=== PATIENT | female | born 1990 | race Caucasian/White ===

== ENCOUNTER 2023-12-18 14:08 | Outpatient (CLI) | payer SELFPAY ==
--- NOTE | ~2023-12-18 | US_ITS ---
US OB transvaginal Ordering provider: Magalys Honeycutt, ANDREA History: . Uncertain dates . Comparison: None. Technique: endovaginal ultrasound of the pelvis (Doppler ultrasound interrogation techniques used as needed for this exam.) FINDINGS: CERVIX: Normal. UTERUS: Measures 12.2x 5.6x 7.9 cm in length which is within normal limits and is anteverted. Intrauterine is noted with gestational age 7 weeks and 0 days. BEAR is August 05, 2024. Yolk sac is 0.4 cm. pole: 1 cm heart rate is 149 bpm. CUL DE SAC: No free fluid. RIGHT OVARY: Not visualized. LEFT OVARY: Normal in size measuring 2.8x 1.2x 2.1 cm. Normal echotexture. Doppler vascular flow pres ent. ADNEXA: Normal. No mass. IMPRESSION: Intrauterine with gestational age 7 weeks and BEAR on August 05, 2024. Otherwise, normal pelvi c ultrasound. Reviewed, dictated and finalized at location A. IMPRESSION: Intrauterine with gestational age 7 weeks and BEAR on August 05, 2024. O therwise, normal pelvic ultrasound.
== END 2023-12-18 14:09 | disposition home or self-care (01) ==
PROVIDERS: PCP Nurse Practitioner Women's Health; Visit Provider Nurse Practitioner Women's Health
DX: Z36.87 Encounter for antenatal screening for uncertain dates (principal); Z3A.01 Less than 8 weeks gestation of pregnancy
CPT/HCPCS: 76817

== ENCOUNTER 2024-02-02 10:43 | Outpatient (CLI) | payer SELFPAY ==
--- NOTE | ~2024-02-02 | US_ITS ---
Pelvic ultrasound. Clinical History: First trimester , spotting Technique: Realtime transabdominal and transvaginal scanning of the pelvis was performed. Color flow Doppler and Doppler spectral analysis were performed. Findings: The uterus is anteverted, and contains an intrauterine gestation. Placenta is located poste riorly. Cephalic lie present. Cervix closed, measuring 3.2 cm in length. Small subchronic hemorrhage present. heart rate is 139 bpm. [place]-rump length of 8.7 cm corresponds to an estimated gestati onal age of 14 weeks 4 days.. Neither ovary seen. No adnexal mass seen. There is no evidence of free fluid in the cul de sac. Impression: Live intrauterine gestation, with estimated gestational age of 14 weeks 4 days. heart rate is 1 39 bpm. Small subchronic hemorrhage. Reviewed, dictated and finalized at [facility]. ER ELECTRONIC Impression: Live intrauterine gestation, with estimated gestational age of 14 weeks 4 days. heart rate is 139 bpm. Small subchronic hemorrhage.
== END 2024-02-02 10:44 | disposition home or self-care (01) ==
LOC: MICIMG 10:44
PROVIDERS: PCP Obstetrics & Gynecology Gynecology; Visit Provider Obstetrics & Gynecology Gynecology
DX: O26.851 Spotting complicating pregnancy, first trimester (principal); Z3A.14 14 weeks gestation of pregnancy
CPT/HCPCS: 76801

== ENCOUNTER 2024-03-25 12:52 | Outpatient (CLI) | payer SELFPAY ==
--- NOTE | ~2024-03-25 | US_ITS ---
EXAMINATION: US OB /maternal detail DATE: 03/25/2024 13:38 INDICATION: anatomic survey. TECHNIQUE: Real-time ultrasound of the pelvis was performed. COMPARISON: Ultrasound 03/04/2024, 02/02/2024, 12/18/2023 FINDINGS: There is a single living fetus in transverse lie. The placenta is posterior, 4.0 cm from the cervix. The cervical length is 3.7 cm on transabdominal images, which is normal. heart rate is 136 maximus ts per minute (bpm). The amniotic fluid volume is subjectively normal. The following biometric data were obtained: Biparietal diameter (BPD): 4.9 cm; head circumference (HC): 19.1 cm; abdominal circumference (AC): 17 .0 cm; femur length (FL): 3.6 cm. These measurements are concordant. Estimated weight is 444 g +/- 67 g, which correlates with the 81st percentile when 08/05/24 is u sed as estimated date of delivery. As single measurements, these parameters are each equal to the following estimated gestational ages: BPD: 20 weeks 6 days. HC: 21 weeks 3 days. AC: 22 weeks 0 days. FL: 21 weeks 4 days. estimated gestational age based solely on measurements from this exam is 21 weeks 3 days +/- 1 weeks 4 days. The cerebral ventricles, cerebellum, cisterna magna, lip, and spine are normal. The heart is normal. The diaphragm, stomach, kidneys, and bladder are normal. There are two umbilical arteries to yield a 3-vessel cord. The cord insertion is normal. IMPRESSION: 1. Single living fetus in transverse lie. 2. Estimated weight is 444 g +/- 67 g, which correlates with the 81st percentile when 08/05/24 is used as estimated date of delivery. This date was set by ultrasound on 12/18/2023. 3. Normal anatomic survey. Reviewed, dictated and finalized at location A. ONS ADVISOR IMPRESSION: 1. Single living fetus in transverse lie. 2. Estimated weight is 444 g +/- 67 g, which correlates with the 81st pe rcentile when 08/05/24 is used as estimated date of delivery. This date was set by ultrasound on 12/18/2023. 3. Normal anatomic survey.
== END 2024-03-25 12:53 | disposition home or self-care (01) ==
PROVIDERS: PCP Obstetrics & Gynecology Gynecology; Visit Provider Nurse Practitioner Women's Health
DX: Z36.9 Encounter for antenatal screening, unspecified (principal)
CPT/HCPCS: 76805

== ENCOUNTER 2024-05-03 13:47 | Outpatient (CLI) | payer OTHER, SELFPAY ==
--- NOTE | ~2024-05-03 | US_ITS ---
EXAMINATION: US OB follow up DATE: 05/03/2024 14:09 INDICATION: Size greater than dates. TECHNIQUE: Real-time ultrasound of the pelvis was performed. COMPARISON: Ultrasound 03/25/2024, 12/18/2023 FINDINGS: There is a single living fetus in breech presentation. The placenta is posterior. heart rate i s 135 beats per minute (bpm). The amniotic fluid index is 20.1 cm, which is normal. The following biometric data were obtained: Biparietal diameter (BPD): 6.7 cm; head circumference (HC): 25.0 cm; abdominal circumference (AC): 21 .8 cm; femur length (FL): 4.8 cm. These measurements are concordant. Estimated weight is 913 g +/- 137 g, which correlates with the 26th percentile when 08/05/24 is used as estimated date of delivery. As single measurements, these parameters are each equal to the following estimated gestational ages: BPD: 26 weeks 6 days. HC: 27 weeks 1 days. AC: 26 weeks 2 days. FL: 26 weeks 0 days. estimated gestational age based solely on measurements from this exam is 26 weeks 4 days +/- 1 weeks 6 days. IMPRESSION: 1. Single living fetus in breech presentation. 2. Estimated weight is 913 g +/- 137 g, which correlates with the 26th percentile when 08/05/24 is used as estimated date of delivery. This date was set by ultrasound on 12/18/2023. Reviewed, dictated and finalized at location B. IMPRESSION: 1. Single living fetus in breech presentation. 2. Estimated weight is 913 g +/- 137 g, which correlates with the 26th p ercentile when 08/05/24 is used as estimated date of delivery. This date was set by ultrasound on 12/18/2023.
== END 2024-05-03 13:48 | disposition home or self-care (01) ==
LOC: MICIMG 13:48
PROVIDERS: PCP Nurse Practitioner Women's Health; Visit Provider Nurse Practitioner Women's Health
DX: O36.63X0 Maternal care for excessive fetal growth, third trimester, not applicable or unspecified (principal); Z3A.00 Weeks of gestation of pregnancy not specified
CPT/HCPCS: 76816

== ENCOUNTER 2024-05-03 14:26 | Outpatient (CLI) | payer OTHER, SELFPAY ==
[2024-05-03 15:08] LABS: Alanine Aminotransferase 24 U/L (6-35); Albumin Level 3.7 g/dL (3.5-5.1); Alkaline Phosphatase 76 U/L (38-126); Anion Gap 12 mmol/L (4-12); Aspartate Amino Transferase 17 U/L (14-36); Bilirubin,Total 0.4 mg/dL (0.2-1.3); Blood Urea Nitrogen 6 mg/dL (7-17); Calcium 9.1 mg/dL (8.4-10.2); Carbon Dioxide 18 mmol/L (22-30); Chloride 105 mmol/L (98-107); Estimated Glomerular Filt Rate > 60; Glucose 110 mg/dL (65-110); Potassium 4.2 mmol/L (3.4-5.0); Sodium 135 mmol/L (137-145); Uric Acid 3.7 mg/dL (2.5-7.5)
--- OUTSIDE RECORDS SUMMARY | 2024-05-03 16:21 | XMS_ITS | Encounter Summary ---
Author Organization [facility] Address [address] [place] [address] Care Team Providers Care Wind Farm Engineer Name Role Phone Unavailable Primary Care Provider Unavailabl e Encounter Details Date Type Department Care Team (Late st Contact Info) Description 05/02/2024 Abstract [facility] Maternal and Medicine - Medical [place] [address] [place] [address] Berna Jorge Social History Tobacco Use Types Packs/Day Years Used Date Smoking Tobacco: Never Assessed Comments Unknown Sex and Gender Information Value Date Recorded Sex Assigned at Not on file Legal Sex Female 1:47 PM TELECOMMUNICATIONS SPECIALIST Gender Identity Not on file Sexual Orientation Not on file documented as of this encounter Plan of Treatment Upcoming Encounters Date Type Department Care Team (Late st Contact Info) Description 05/18/2024 10:45 AM CDT Video Visit [facility] Maternal Medicine [address] [facility] [address] [place] [address] Clementina Santos NP [address] [facility] [place] [address] 06/06/2024 4:30 PM CDT Video Visit [facility] Maternal and Medicine - Medical [place] [address] [place] [address] documented as of this encounter Visit Diagnoses Not on filedocumented in this encounter
--- OUTSIDE RECORDS SUMMARY | 2024-05-03 16:21 | XMS_ITS | Clinical Summary ---
Author Organization [facility] Address [address] [place] [address] Phone Care Team Providers Care Chemistry Physics Teacher Name Role Phone Unavailable Primary Care Provider Unavailabl e Encounters Date Type Department Care Team Description 05/02/2024 Abstract [facility] Maternal and Medicine - Medical [place] [address] [place] [address] Berna Jorge 04/29/2024 Orders Only [facility] Maternal and Ground Floor S [facility] [address] [place] [address] Jessica Higgins MD Gestational diabetes mellitus (GDM), antepartum, gestational diabetes method of control unspecified (Primary Dx); Excessive growth affecting management of , antepartum, single or unspecified fetus from Last 3 Months Social History Tobacco Use Types Packs/Day Years Used Date Smoking Tobacco: Never Assessed Comments Unknown Sex and Gender Information Value Date Recorded Sex Assigned at Not on file Legal Sex Female 1:47 PM REGIONAL COORDINATOR Gender Identity Not on file Sexual Orientation Not on file Plan of Treatment Upcoming Encounters Date Type Department Care Team (Late st Contact Info) Description 05/18/2024 10:45 AM CDT Video Visit [facility] Maternal Medicine [address] [facility] [address] [address] [facility] [address] [address] Clementina Santos NP [address] [facility] [place] [address] 06/06/2024 4:30 PM CDT Video Visit [facility] Maternal and Medicine - Medical [place] [address] [place] [id number] Health Maintenance Due Date Last Done Comments DTAP/TDAP/TD VACCINES (1 - Tdap) 06/23/2010 HEPATITIS B VACCINES (1 of 3 - 19+ 3-dose series) 06/23/2010 CERVICAL CANCER SCREENING 06/23/2021 INFLUENZA VACCINE (#1) 2023 HPV VACCINES Aged Out No longer eligi ble based on patient's age to complete this topic
== END 2024-05-03 14:27 | disposition home or self-care (01) ==
LOC: ANHLAB 14:29
PROVIDERS: PCP Nurse Practitioner Women's Health; Visit Provider Nurse Practitioner Women's Health
DX: O24.414 Gestational diabetes mellitus in pregnancy, insulin controlled (principal); Z3A.00 Weeks of gestation of pregnancy not specified
CPT/HCPCS: 36415; 80053; 84550

== ENCOUNTER 2024-05-04 11:49 | Outpatient (RCR) | payer OTHER, MEDICAID, SELFPAY ==
[2024-05-04 13:35] VITALS: BMI 42.2
== END 2024-07-25 09:34 | disposition home or self-care (01) ==
LOC: ANHDMC 11:49
PROVIDERS: PCP Nurse Practitioner Women's Health; Visit Provider Obstetrics & Gynecology Gynecology
DX: O24.410 Gestational diabetes mellitus in pregnancy, diet controlled (principal); Z71.3 Dietary counseling and surveillance; Z71.89 Other specified counseling
CPT/HCPCS: 97802; G0108

== ENCOUNTER 2024-05-10 14:15 | Outpatient (CLI) | payer OTHER, SELFPAY ==
--- OUTSIDE RECORDS SUMMARY | 2024-05-10 16:07 | XMS_ITS | Referral Summary ---
Author Organization [facility] Address [address] [place] [address] Care Team Providers Care Emergency Services Director Name Role Phone No, Physician Primary Care Provider [phone] Allergies No known active allergies Medications traMADoL (ULTRAM) 50 mg tablet Take 1-2 tablets (50-100 mg total) by mouth every 6 (six) hours as needed for pain 20 tablet 0 Active Additional Information Patient not taking.Reported on 11/28/2023 benzonatate (TESSALON) 200 mg capsuleIndicatio ns:Pneumonia due to infectious organism, unspecified laterality, unspecified part of lung Take 1 capsule (200 mg total) by mouth 3 (three) times a day as needed for cough 42 capsule 4 Active azithromycin (ZITHROMAX) 250 mg tabletIndication s:Pneumonia due to infectious organism, unspecified laterality, unspecified part of lung Take two tabs first day, then one tab daily x 4 days 6 tablet 4 Active Active Problems Estimated Date of Delivery Comme nts Yes 08/04/2024 No known active problems Immunizations Immunization Administration Dates Next Due Tdap 02/08/2018 Social History Tobacco Use Types Packs/Day Years Used Date Smoking Tobacco: Every Day Cigarettes 0.5 10 Smokeless Tobacco: Never Alcohol Use Standard Drinks/Week Comments Not Currently 0 (1 standard drink = 0.6 oz pur e alcohol) Personal Safety Answer Date Recorded Have you ever been in or are you currently in a harmful physical or emotional relationship or is someone making you feel afraid or unsafe? Denies 01/19/2024 Estimated Date of Delivery Comme nts Yes 08/04/2024 Sex and Gender Information Value Date Recorded Sex Assigned at Not on file Legal Sex Female 5:02 PM TECHNICIAN ASSISTANT Gender Identity Not on file Sexual Orientation Not on file Last Filed Vital Signs Vital Sign Reading Time Taken Comments Blood Pressure 107/87 01/20/2024 1:00 AM TECHNICIAN ASSISTANT Pulse 87 01/20/2024 2:20 AM TECHNICIAN ASSISTANT Temperature 37.1 C (98.7 F) 01/19/2024 9:54 PM TECHNICIAN ASSISTANT Respiratory Rate 18 01/19/2024 9:54 PM TECHNICIAN ASSISTANT Oxygen Saturation 97% 01/20/2024 2:20 AM TECHNICIAN ASSISTANT Inhaled Oxygen Concentration - - Weight 108.4 kg (239 lb) 01/19/2024 9:54 PM TECHNICIAN ASSISTANT Height 162.6 cm (5' 4 ) 01/19/2024 9:54 PM TECHNICIAN ASSISTANT Body Mass Index 41.02 01/19/2024 9:54 PM TECHNICIAN ASSISTANT Plan of Treatment Not on file Insurance IDNY Care Teams Emergency Services Director Relationship Specialty Start Date End Date No, Physician PCP - General 10/03/17
--- OUTSIDE RECORDS SUMMARY | 2024-05-10 16:07 | XMS_ITS | Clinical Summary ---
Author Organization [facility] Address [address] [place] [address] Care Team Providers Care Marble Cutter Name Role Phone No, Physician Primary Care Provider [phone] Allergies No known active allergies Medications traMADoL [...] on file Legal Sex Female 5:02 PM SENIOR FINANCIAL REPORTING ANALYST Gender Identity Not on file Sexual Orientation Not on file Obstetrics History Para Term AB IAB SAB Ectopic Multiple Livin g Live Births 1 Date Outcome GA Total Labor Labor/2nd/3rd Weight Sex Type Anes PTL Rajni A1 A5 Name Clin Current Last Filed Vital Signs Vital Sign Reading Time Taken Comments Blood Pressure 107/87 01/20/2024 1:00 AM SENIOR FINANCIAL REPORTING ANALYST Pulse 87 01/20/2024 2:20 AM SENIOR FINANCIAL REPORTING ANALYST Temperature 37.1 C (98.7 F) 01/19/2024 9:54 PM SENIOR FINANCIAL REPORTING ANALYST Respiratory Rate 18 01/19/2024 9:54 PM SENIOR FINANCIAL REPORTING ANALYST Oxygen Saturation 97% 01/20/2024 2:20 AM SENIOR FINANCIAL REPORTING ANALYST Inhaled Oxygen Concentration - - Weight 108.4 kg (239 lb) 01/19/2024 9:54 PM SENIOR FINANCIAL REPORTING ANALYST Height 162.6 cm (5' 4 ) 01/19/2024 9:54 PM SENIOR FINANCIAL REPORTING ANALYST Body Mass Index 41.02 01/19/2024 9:54 PM SENIOR FINANCIAL REPORTING ANALYST Plan of Treatment Health Maintenance Due Date Last Done Comments Cervical Cancer Screening 1991 Depression Screening 1991 Hepatitis C Screening 1991 Varicella Vaccines (1 of 2 - 13+ 2-dose series) 06/23/2004 Hepatitis B Screening 06/23/2009 Regular Well Visit/Exam 18-64 06/23/2009 Pneumococcal vaccine <65 (1 of 2 - PCV) 06/23/2010 Influenza Vaccine (#1) 2023 DTaP/Tdap/Td Vaccine (2 - Td or Tdap) 02/09/2028 02/08/2018 HPV Vaccines Aged Out No longer eligi ble based on patient's age to complete this topic Insurance IDPA Care Teams Marble Cutter Relationship Specialty Start Date End Date No, Physician PCP - General 10/03/17
--- OUTSIDE RECORDS SUMMARY | 2024-05-10 16:07 | XMS_ITS | Clinical Summary ---
Author Organization [facility] Address [address] [place] [address] Phone Care Team Providers Care Croze Cutter Name Role Phone Unavailable Primary Care Provider Unavailabl e Encounters Date Type Department Care Team Description 05/02/2024 Abstract [facility] Maternal and Medicine - Medical [place] [address] [place] [address] Berna Jorge 04/29/2024 Orders Only [facility] Maternal and Ground Floor S [facility] [address] [place] [address] Jessica Higgins MD Gestational diabetes [...] on file Legal Sex Female 1:47 PM COPPERSMITH APPRENTICE Gender Identity Not on file Sexual Orientation Not on file Plan of Treatment Upcoming Encounters Date Type Department Care Team (Late st Contact Info) Description 05/16/2024 9:45 AM CDT Appointment [facility] Maternal and Health [facility] [address] [place] [address] Jessica Higgins MD [address] [facility] [address] [place] [address] 05/18/2024 10:45 AM CDT Video Visit [facility] Maternal Medicine [address] [place] [address] Tom Clementina, POULTRY HATCHERY LABORER [address] [facility] [place] [address] 06/06/2024 4:30 PM CDT Video Visit [facility] Maternal and Medicine - [facility] [address] [facility] [place] [address] Health Maintenance Due Date Last Done Comments DTAP/TDAP/TD VACCINES (1 - Tdap) 06/23/2010 HEPATITIS B VACCINES (1 of 3 - 19+ 3-dose series) 06/23/2010 CERVICAL CANCER SCREENING 06/23/2021 INFLUENZA VACCINE (#1) 2023 HPV VACCINES Aged Out No longer eligi ble based on patient's age to complete this topic
== END 2024-05-10 14:16 | disposition home or self-care (01) ==
PROVIDERS: PCP Obstetrics & Gynecology Gynecology; Visit Provider Nurse Practitioner Women's Health
DX: O24.414 Gestational diabetes mellitus in pregnancy, insulin controlled (principal); Z3A.00 Weeks of gestation of pregnancy not specified
CPT/HCPCS: 82530

== ENCOUNTER 2024-07-04 14:02 | Outpatient (CLI) | payer OTHER, SELFPAY ==
--- OUTSIDE RECORDS SUMMARY | 2024-07-04 14:11 | XMS_ITS | Referral Summary ---
Author Organization [facility] Address [address] [place] [address] Care Team Providers Care Chemical Plant Technical Director Name Role Phone No, Physician Primary Care Provider [phone] Allergies No known active allergies Medications traMADoL [...] on file Legal Sex Female 5:02 PM GROUP EXERCISE MANAGER Gender Identity Not on file Sexual Orientation Not on file Last Filed Vital Signs Vital Sign Reading Time Taken Comments Blood Pressure 107/87 01/20/2024 1:00 AM GROUP EXERCISE MANAGER Pulse 87 01/20/2024 2:20 AM GROUP EXERCISE MANAGER Temperature 37.1 C (98.7 F) 01/19/2024 9:54 PM GROUP EXERCISE MANAGER Respiratory Rate 18 01/19/2024 9:54 PM GROUP EXERCISE MANAGER Oxygen Saturation 97% 01/20/2024 2:20 AM GROUP EXERCISE MANAGER Inhaled Oxygen Concentration - - Weight 108.4 kg (239 lb) 01/19/2024 9:54 PM GROUP EXERCISE MANAGER Height 162.6 cm (5' 4 ) 01/19/2024 9:54 PM GROUP EXERCISE MANAGER Body Mass Index 41.02 01/19/2024 9:54 PM GROUP EXERCISE MANAGER Plan of Treatment Not on file Insurance IDDC Care Teams Chemical Plant Technical Director Relationship Specialty Start Date End Date No, Physician PCP - General 10/03/17
--- OUTSIDE RECORDS SUMMARY | 2024-07-04 14:11 | XMS_ITS | Clinical Summary ---
Author Organization [facility] Address [address] [place] [address] Care Team Providers Care Milling Operator Name Role Phone Unavailable Primary Care Provider Unavailabl e Source Comments [facility],non-owned Affiliates and Associated Physician Practices is amultiple site organization consisting of ambulatory clinics and hospital sitesin [place], [place], [place] and [place]. This disclosure is being madepursuant to the Care Everywhere program and may not contain all information available regarding this patient. Last updated 17.[facility] Social History Tobacco Use Types Packs/Day Years Used Date Smoking Tobacco: Never Assessed Comments Unknown Sex and Gender Information Value Date Recorded Sex Assigned at Not on file Legal Sex Female 12:54 PM CDT Gender Identity Not on file Sexual Orientation Not on file Plan of Treatment Upcoming Encounters Date Type Department Care Team (Late st Contact Info) Description 07/11/2024 9:[address] [facility] Women's Health Maternal & Care [address] [place] [address] Health Maintenance Due Date Last Done Comments PAP SMEAR 1991 HIV SCREENING 06/23/2006 HEPATITIS C SCREENING 06/19/2009 DTAP/TDAP/TD VACCINES (1 - Tdap) 06/23/2010 HEPATITIS B VACCINE (1 of 3 - 19+ 3-dose series) 06/23/2010 COVID-19 VACCINE ( - 2023-2 5 season) 2023 DEPRESSION SCREENING 02/24/2024 INFLUENZA VACCINE (Season Ended) 2024 ZOSTER VACCINE (1 of 2) 06/23/2041 HIB VACCINE Aged Out No longer eligi ble based on patient's age to complete this topic HPV VACCINE Aged Out No longer eligi ble based on patient's age to complete this topic MENINGOCOCCAL (Group B) VACC INE SHARED DECISION-MAKING Aged Out No longer eligibl e based on patient's age to complete this topic MENINGOCOCCAL GROUPS A/C/Y/W VACCINE Aged Out No longer eligible b ased on patient's age to complete this topic PNEUMOCOCCAL VACCINE Aged Out No long er eligible based on patient's age to complete this topic
--- OUTSIDE RECORDS SUMMARY | 2024-07-04 14:11 | XMS_ITS | Clinical Summary ---
Author Organization [facility] Address [address] [place] [address] Care Team Providers Care Bond Runner Name Role Phone No, Physician Primary Care Provider Allergies No known active allergies Medications traMADoL [...] on file Legal Sex Female 5:02 PM HOUSE DIRECTOR Gender Identity Not on file Sexual Orientation Not on file Obstetrics History Para Term AB IAB SAB Ectopic Multiple Livin g Live Births 1 Date Outcome GA Total Labor Labor/2nd/3rd Weight Sex Type Anes PTL Rajni A1 A5 Name Clin Current Last Filed Vital Signs Vital Sign Reading Time Taken Comments Blood Pressure 107/87 01/20/2024 1:00 AM HOUSE DIRECTOR Pulse 87 01/20/2024 2:20 AM HOUSE DIRECTOR Temperature 37.1 C (98.7 F) 01/19/2024 9:54 PM HOUSE DIRECTOR Respiratory Rate 18 01/19/2024 9:54 PM HOUSE DIRECTOR Oxygen Saturation 97% 01/20/2024 2:20 AM HOUSE DIRECTOR Inhaled Oxygen Concentration - - Weight 108.4 kg (239 lb) 01/19/2024 9:54 PM HOUSE DIRECTOR Height 162.6 cm (5' 4 ) 01/19/2024 9:54 PM HOUSE DIRECTOR Body Mass Index 41.02 01/19/2024 9:54 PM HOUSE DIRECTOR Plan of Treatment Health Maintenance Due Date Last Done Comments Cervical Cancer Screening 1991 Depression Screening 1991 Hepatitis C Screening 1991 Varicella Vaccines (1 of 2 - 13+ 2-dose series) 06/23/2004 Hepatitis B Screening 06/23/2009 Regular Well Visit/Exam 18-64 06/23/2009 Pneumococcal vaccine <65 (1 of 2 - PCV) 06/23/2010 Influenza Vaccine (Season Ended) 2024 DTaP/Tdap/Td Vaccine (2 - Td or Tdap) 02/09/2028 02/08/2018 HPV Vaccines Aged Out No longer eligi ble based on patient's age to complete this topic Insurance IDPA Care Teams Bond Runner Relationship Specialty Start Date End Date No, Physician PCP - General 10/03/17
--- OUTSIDE RECORDS SUMMARY | 2024-07-04 14:11 | XMS_ITS | Clinical Summary ---
Author Organization [facility] Address [address] [place] [address] Phone Care Team Providers Care Web Specialist Name Role Phone Unavailable Primary Care Provider Unavailabl e Allergies No known active allergies Medications vits15/iron/fol ic/dss ( VIT 54-ZUXY-[id number]-D SS ORAL) Take by mouth. Activ e aspirin (ECOTRIN EC) 81 mg Tablet, Delayed Release (E.C.) Take 81 mg by mouth daily. Active insulin lispro (HumaLOG,ADMELO G) 100 unit/mL vial Inject by subcutaneous injection. 14 units at breakfast 22 units at dinner Active insulin NPH human (HUMULIN N,NOVOLIN N) 100 unit/mL pen syringe Inject by subcutaneous injection. 28 units AM 25 units HS Active calcium as CARBONATE (TUMS) 500 mg (200 mg elemental) Tablet, Chewable Take by mouth 1 time daily as needed. Active ferrous sulfate 325 mg (65 mg iron) tablet Take 325 mg by mouth daily. Active CALCIUM CARBONATE-VITAM IN D3 ORAL Take by mouth. Acti ve ascorbic acid, vitamin C, (VITAMIN C) 1,000 mg Tablet Take 1,000 mg by mouth daily. Active Dexcom G7 Sensor DeviceIndicatio ns:Gestational diabetes mellitus, class A2 Change sensor every 10 days as directed 3 Each 9 5 Active metFORMIN (GLUCOPHAGE XR) 500 mg Extended Release 24 hour tabletIndicatio ns:Gestational diabetes mellitus, class A2 Take 1 Tablet (500 mg) by mouth 2 times daily with meals. Plan to increase to 1000mg BID 120 Tablet 3 5 Active levothyroxine 25 mcg tablet Take 25 mcg by mouth daily in the morning. 5 Active Active Problems Problem Noted Date Diagnosed Date Gestational diabetes mellitus, class A2 05/19/19 25 Obesity affecting in third trimester 0 05/18/2024 Estimated Date of Delivery Comme nts Yes 08/04/2024 Date entered pito or to episode creation Encounters Date Type Department Care Team Description 06/23/2024 Telephone [facility] [address] [place] [address] Dimple Zazueta Follow Up 06/22/2024 Telephone [facility] [address] [place] [address] Gestational Diabetes 06/21/2024 External Device Data STL ABSTRACTION Provider, Abstract 06/21/2024 External Device Data [facility] ABSTRACTION Provider, Abstract 06/13/2024 7:30 AM CDT - 06/13/2024 11:59 PM CDT Hospital Encounter [facility] [address] [place] [address] Jessica Higgins MD Discharge Disposition: Home or Self Care 06/06/2024 Chart Note [facility] [address] [place] [address] Yaneth Awad MD Gestational Diabetes 05/26/2024 Orders Only [facility] [address] [place] [address] Bertha Jin, RN 05/23/2024 Chart Note [facility] [address] [place] [place] [address] Clementina Santos NP Diabetes 05/18/2024 10:45 AM CDT Video Visit [facility] [address] [place] [address] [place] [address] Clementina Santos NP Gestational diabetes mellitus, class A2 (Primary Dx); Obesity affecting in third trimester, unspecified obesity type; 28 weeks gestation of 05/18/2024 Chart Note [facility] [address] [place] [address] Lisa Sanchez RN 05/18/2024 Chart Note [facility] [address] [place] [place] [phone] Clementina Santos NP Diabetes 05/17/2024 External Device Data [facility] ABSTRACTION Provider, Abstract 05/17/2024 External Device Data [facility] ABSTRACTION Provider, Abstract 05/17/2024 External Device Data [facility] ABSTRACTION Provider, Abstract 05/17/2024 Telephone [facility] [address] [place] [address] Lisa Sanchez RN Medical Records 05/17/2024 Abstract [facility] [address] [place] [address] Lisa Sanchez RN 05/16/2024 9:41 AM CDT - 05/16/2024 11:59 PM CDT Hospital Encounter [facility] [address] [address] [place] [address] Jessica Higgins MD Discharge Disposition: Home or Self Care 05/02/2024 Abstract [facility] [address] [place] [address] Berna Jorge 04/29/2024 Orders Only [facility] [address] [place] [address] Jessica Higgins MD Gestational diabetes mellitus (GDM), antepartum, gestational diabetes method of control unspecified (Primary Dx); Excessive growth affecting management of , antepartum, single or unspecified fetus from Last 3 Months Family History Medical History Relation Name Comments Diabetes Father Heart Disease Father Diabetes Mother Heart Disease Mother Diabetes Paternal Grandmother Relation Name Status Comments Father Mother Paternal Grandmother Social History Tobacco Use Types Packs/Day Years Used Date Smoking Tobacco: Never Smokeless Tobacco: Former Tobacco Cessation:Counseling Given: Not Answered Alcohol Use Standard Drinks/Week Comments Never 0 (1 standard drink = 0.6 oz pur e alcohol) Estimated Date of Delivery Comme nts Yes 08/04/2024 Date entered pito or to episode creation Sex and Gender Information Value Date Recorded Sex Assigned at Not on file 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 Gender Identity Not on file Sexual Orientation Not on file Last Filed Vital Signs Vital Sign Reading Time Taken Comments Blood Pressure - - Pulse - - Temperature - - Respiratory Rate - - Oxygen Saturation - - Inhaled Oxygen Concentration - - Weight 116.1 kg (256 lb) 05/18/2024 10:41 AM CDT Height 165.1 cm (5' 5 ) 05/18/2024 10:41 AM CDT Body Mass Index 42.6 05/18/2024 10:41 AM CDT Plan of Treatment Health Maintenance Due Date Last Done Comments HEPATITIS B VACCINES (1 of 3 - 19+ 3-dose series) 06/23/2010 HPV/Cotest (21-29) 06/23/2012 CERVICAL CANCER SCREENING 06/23/2021 HPV/Cotest (30-65) 06/23/2021 PAP SMEAR 06/23/2021 INFLUENZA VACCINE (#1) 2023 DTAP/TDAP/TD VACCINES (2 - T d or Tdap) 02/09/2028 02/08/2018 HPV VACCINES Aged Out No longer eligi ble based on patient's age to complete this topic RSV VACCINE (60+ or ) (No Doses Required) Completed Procedures Procedure Name Priority Date/Time Associated Diagnosis Comments US OB FOLLOW UP PER FETUS Routine 06/13/2024 7:52 AM CDT screening for malformation using ultrasonics Gestational diabetes mellitus (GDM) affecting US OB DETAIL SINGLE GEST Routine 05/16/2024 10:44 AM CDT screening for malformation using ultrasonics Gestational diabetes mellitus (GDM) affecting from Last 3 Months Results * US OB FOLLOW UP PER FETUS (06/13/2024 7:52 AM CDT) Anatomical Region Laterality Modality Pelvis Ultrasound 06/13/2024 7:30 AM CDT Narrative 06/13/2024 8:20 AM CDT STL FOLLOW UP ----- Vivian. Name: HIEN ARCHER Study Date: 06/13/2024 7:30am Pat. NO: [id number] Referring MD: JESSICA HIGGINS MD Site: [facility] Utilization Management Um: Tiffanie Cotton RDMS : 1990 Age: 33 ----- INDICATION ----- Gestational Diabetes, Insulin Controlled Maternal Obesity (BMI>40) Complicating Screening Follow-Up CODING ----- Diagnoses Z3A.32: Weeks of gestation O99.213: Obesity complicating O24.414: Gestational diabetes mellitus in , insulin controlled Z36.2: Encounter for other screening follow-up Procedures 47439: Ultrasound, uterus, real time with image documentation, follow up, transabdominal approach per fetus METHOD ----- Transabdominal ultrasound examination ----- [place] . Number of fetuses: 1 DATING ----- GA by prior assessment 32 w + 4 d BEAR by prior assessment: 08/04/2024 Ultrasound examination on: 06/13/2024 GA by U/S based upon: AC, BPD, EFW, Femur, HC GA by U/S 33 w + 6 d BEAR by U/S: 07/26/2024 Method of dating: Restore dating from previous exam Assigned: based on stated BEAR, selected on 05/16/2024 Assigned GA 32 w + 4 d Assigned BEAR: 08/04/2024 BIOMETRY ----- BPD 82.1 mm 33w 0d 56% Hadlock OFD 109.9 mm 36w 3d >99% Jj HC 307.2 mm 34w 2d 58% Hadlock AC 305.9 mm 34w 4d 94% Hadlock Femur 64.8 mm 33w 3d 62% Hadlock HC / AC 1.00 19% Nicolaides Weight Calculation: EFW 2,338 g 33w 6d 83% Hadlock EFW (lb,oz) 5 lb 2 oz EFW by Hadlock ([id number]) Head / Face / Neck Biometry: Product Distribution Specialist 2.5 mm Extremities / Bony Struc Biometry: FL / BPD 0.79 FL / HC 0.21 FL / AC 0.21 GENERAL EVALUATION ----- Cardiac activity present. FHR 142 bpm. movements: present. Presentation: cephalic Placenta: Placental site: posterior Umbilical cord: Cord vessels: 3 vessel cord. Insertion site: placental insertion: suboptimal Amniotic fluid: Amount of AF: normal amount. MVP 5.1 cm. AZAM 17.4 cm. Q1 4.7 cm, Q2 4.9 cm, Q3 2.7 cm, Q4 5.1 cm ANATOMY ----- The following structures appear normal: Head / Neck Cranium. Lateral ventricles. Choroid plexus. Midline falx. Cavum septi pellucidi. Heart / Thorax Diaphragm. Abdomen Stomach. Kidneys. Bladder. GROWTH OVERVIEW ----- Exam date GA BPD (mm) HC (mm) AC (mm) FL (mm) HL (mm) EFW (g) 05/16/2024 28w 4d 72.4 54% 273.5 58% 254.5 75% 52.4 18% 53.0 94% 1,328 55% 06/13/2024 32w 4d 82.1 56% 307.2 58% 305.9 94% 64.8 62% 2,338 83% COMMENT ----- Patient's name and date of were verified by the metal drill operator prior to the exam IMPRESSION ----- Viable at 32 weeks gestation complicated by maternal obesity and gestational diabetes, insulin controlled Upper normal growth profile with estimated weight 83rd percentile and abdominal circumference at the 94th percentile No structural malformations were identified within the limitations of a late ultrasound Amniotic fluid volume is normal Posterior placenta. Placental cord insertion not well-visualized. Placenta is not low-lying. The placental cord insertion has not been visualized on either ultrasound performed in the center Recommendations: - A follow-up ultrasound was scheduled in 4 weeks. Transvaginal ultrasound will be performed if placental cord insertion cannot be visualized. Procedure Note Trip Palumbo MD - 06/13/2024 STL FOLLOW UP ----- Pat. Name:Tam ARCHER Date:06/13/2024 7:30am Pat. NO: [id number] MD:JESSICA HIGGINS MD [facility]Tiffanie Cotton RDMS :1990Age:33 ----- INDICATION ----- Gestational Diabetes, Insulin Controlled Maternal Obesity (BMI>40) Complicating Screening Follow-Up CODING ----- Diagnoses Z3A.32: Weeks of gestation O99.213: Obesity complicating O24.414: Gestational diabetes mellitus inpregnancy, insulin controlled Z36.2: Encounter for other screeningfollow-up Procedures 05577: Ultrasound, uterus, real time withimage documentation, follow up, transabdominal approach per fetus METHOD ----- Transabdominal ultrasound examination ----- [place] . Number of fetuses: 1 DATING ----- GA by prior w + 4 d BEAR by prior assessment:08/04/2024 Ultrasound examination on:06/13/2024 GA by U/S based upon:AC, BPD, EFW, Femur, HC GA by U/S33 w + 6 d BEAR by U/S:07/26/2024 Method of dating:Restore dating from previous exam Assigned:based on stated BEAR, selected on 05/16/2024 Assigned GA32 w + 4 d Assigned BEAR:08/04/2024 BIOMETRY ----- BPD 82.1 mm 33w 0d 56%Hadlock OFD 109.9 mm 36w 3d >99%Jj HC 307.2 mm 34w 2d 58%Hadlock AC 305.9 mm 34w 4d 94%Hadlock Femur 64.8 mm 33w 3d 62%Hadlock HC / AC 1.00 19%Nicolaides Weight Calculation: EFW 2,338 g 33w 6d83% Hadlock EFW (lb,oz) 5 lb 2 oz EFW by Hadlock ([id number]) Head / Face / Neck Biometry: Product Distribution Specialist 2.5mm Extremities / Bony Struc Biometry: FL / BPD 0.79 FL / HC 0.21 FL / AC 0.21 GENERAL EVALUATION ----- Cardiac activity present. FHR 142 bpm. movements: present.Presentation: cephalic Placenta: Placental site: posterior Umbilical cord: Cord vessels: 3 vessel cord. Insertion site: placentalinsertion: suboptimal Amniotic fluid: Amount of AF: normal amount. MVP 5.1 cm. AZAM 17.4 cm. Q14.7 cm, Q2 4.9 cm, Q3 2.7 cm, Q4 5.1 cm ANATOMY ----- The following structures appear normal: Head / Neck Cranium. Lateral ventricles. Choroid plexus.Midline falx. Cavum septi pellucidi. Heart / Thorax Diaphragm. Abdomen Stomach. Kidneys. Bladder. GROWTH OVERVIEW ----- Exam date GA BPD (mm) HC (mm) AC (mm) FL(mm) HL (mm) EFW (g) 05/16/2024 28w 4d 72.4 54% 273.5 58% 254.5 75%52.4 18% 53.0 94% 1,328 55% 06/13/2024 32w 4d 82.1 56% 307.2 58% 305.9 94%64.8 62% 2,338 83% COMMENT ----- Patient's name and date of were verified by the metal drill operator prior tothe exam IMPRESSION ----- Viable at 32 weeks gestation complicated by maternal obesity andgestational diabetes, insulin controlled Upper normal growth profile with estimated weight 83rdpercentile and abdominal circumference at the 94th percentile No structural malformations were identified within the limitationsof a late ultrasound Amniotic fluid volume is normal Posterior placenta. Placental cord insertion not well-visualized. Placentais not low-lying. The placental cord insertion has not been visualized on either ultrasoundperformed in the center Recommendations: - A follow-up ultrasound was scheduled in 4 weeks. Transvaginal ultrasoundwill be performed if placental cord insertion cannot be visualized. us Jessica Higgins MD US ORDERABLES Final Res ult * US OB DETAIL SINGLE GEST (05/16/2024 10:44 AM CDT) Anatomical Region Laterality Modality Pelvis Ultrasound 05/16/2024 9:46 AM CDT Narrative 05/16/2024 10:48 AM CDT STL COMP ----- Pat. Name: HIEN ARCHER Study Date: 05/16/2024 9:46am Pat. NO: [id number] Referring MD: JESSICA HIGGINS MD Site: [facility] Utilization Management Um: Tiffanie Cotton RDMS : 1990 Age: 33 ----- INDICATION ----- Anatomy Survey no genetics Gestational Diabetes, Insulin Controlled Maternal Obesity (BMI>40) Complicating CODING ----- Diagnoses Z3A.28: Weeks of gestation O99.213: Obesity complicating Z36.3: Encounter for screening for malformations O24.414: Gestational diabetes mellitus in , insulin controlled Procedures 89517: Ultrasound, uterus, real time with image documentation, and maternal evaluation plus detailed anatomic examination, transabdominal approach MATERNAL ASSESSMENT ----- Physical Exam Weight 117 kg. BMI 42.77 kg/m METHOD ----- Transabdominal ultrasound examination ----- [place] . Number of fetuses: 1 DATING ----- Method of dating: based on stated BEAR GA by prior assessment 28 w + 4 d BEAR by prior assessment: 08/04/2024 Ultrasound examination on: 05/16/2024 GA by U/S based upon: AC, BPD, EFW, Femur, HC GA by U/S 29 w + 0 d BEAR by U/S: 08/01/2024 Assigned: based on stated BEAR, selected on 05/16/2024 Assigned GA 28 w + 4 d Assigned BEAR: 08/04/2024 BIOMETRY ----- BPD 72.4 mm 29w 0d 54% Hadlock OFD 97.9 mm 31w 4d 98% Jj HC 273.5 mm 29w 6d 58% Hadlock Cerebellum tr 36.0 mm 31w 2d 88% Valles AC 254.5 mm 29w 4d 75% Hadlock Femur 52.4 mm 27w 6d 18% Hadlock Humerus 53.0 mm 30w 6d 94% Jj HC / AC 1.07 35% Nicolaides Weight Calculation: EFW 1,328 g 28w 5d 55% Hadlock EFW (lb,oz) 2 lb 15 oz EFW by Hadlock ([id number]) Head / Face / Neck Biometry: Product Distribution Specialist 5.1 mm CM 8.3 mm 87% Nicolaides Outer IOD 47.7 mm 30w 0d 58% Jj Extremities / Bony Struc Biometry: FL / BPD 0.72 FL / HC 0.19 FL / AC 0.21 GENERAL EVALUATION ----- Cardiac activity present. FHR 131 bpm. movements: present. Presentation: cephalic Placenta: Placental site: posterior Umbilical cord: Cord vessels: 3 vessel cord. Insertion site: placental insertion: suboptimal Amniotic fluid: Amount of AF: normal amount. MVP 5.5 cm. AZAM 16.7 cm. Q1 2.8 cm, Q2 4.4 cm, Q3 5.5 cm, Q4 3.9 cm ANATOMY ----- The following structures appear normal: Head / Neck Cranium. Lateral ventricles. Choroid plexus. Midline falx. Cavum septi pellucidi. Cerebellum. Cisterna magna. Face Lips. Profile. Nose. Palate. Orbits. Heart / Thorax RVOT view. LVOT view. Situs. Aortic arch view. Superior vena cava. Inferior vena cava. High short axis view. Cardiac rhythm. Diaphragm. Abdomen Abdominal wall. Stomach. Kidneys. Bladder. Spine Cervical spine. Thoracic spine. Lumbar spine. Sacral spine. Extremities / Arms. Right hand. Left hand. Legs. Right foot. Left foot. Skeleton The following structures could not be adequately visualized: Heart / Thorax 4-chamber view. 3-vessel view. 1-lvfrue-sytfxzc view. Ductal arch view. MATERNAL STRUCTURES ----- Cervix Visualized Approach - Transabdominal Right Ovary Not visualized Left Ovary Not visualized GROWTH OVERVIEW ----- Exam date GA BPD (mm) HC (mm) AC (mm) FL (mm) HL (mm) EFW (g) 05/16/2024 28w 4d 72.4 54% 273.5 58% 254.5 75% 52.4 18% 53.0 94% 1,328 55% COMMENT ----- Patient's name and date of were verified by the metal drill operator before the exam IMPRESSION ----- 1. Single living fetus with a gestational age of 28w 4d based on the reported clinical dates. 2. Current growth parameters are consistent with the stated EDC. The size is normal at the 55% (1328 g). 3. Detailed evaluation was performed and no structural abnormalities are noted. No gross structural abnormalities note. Suboptimal visualization secondary to maternal acoustics, positioning and advanced gestational age. No overt markers for aneuploidy identified. -Suboptimal views of PCI, 4CH, 3VV, 3VTV, DA. 4. The amniotic fluid is normal for gestational age (5.5 cm). 5. Placenta is posterior. No previa or low lying placenta noted. Recommendations: -Follow up growth sonograms at 4 week intervals -Twice weekly mBPP from 32 weeks until delivery Thank you for allowing us to participate in the care of this patient. Procedure Note Damien Quispe MD - 05/16/2024 STL COMP ----- Pat. Name:Tam ARCHER Date:05/16/2024 9:46am Pat. NO: [id number] MD:JESSICA HIGGINS [facility]Tiffanie Cotton RDMS :1990Age:33 ----- INDICATION ----- Anatomy Survey no genetics Gestational Diabetes, Insulin Controlled Maternal Obesity (BMI>40) Complicating CODING ----- Diagnoses Z3A.28: Weeks of gestation O99.213: Obesity complicating Z36.3: Encounter for screening formalformations O24.414: Gestational diabetes mellitus inpregnancy, insulin controlled Procedures 10504: Ultrasound, uterus, real time withimage documentation, and maternal evaluation plus detailed anatomic examination,transabdominal approach MATERNAL ASSESSMENT ----- Physical Exam Weight 117 kg. BMI 42.77 kg/m METHOD ----- Transabdominal ultrasound examination ----- [place] . Number of fetuses: 1 DATING ----- Method of dating:based on stated BEAR GA by prior [id number] w + 4 d BEAR by prior assessment:08/04/2024 Ultrasound examination on:05/16/2024 GA by U/S based upon:AC, BPD, EFW, Femur, HC GA by U/S29 w + 0 d BEAR by U/S:08/01/2024 Assigned:based on stated BEAR, selected on 05/16/2024 Assigned GA28 w + 4 d Assigned BEAR:08/04/2024 BIOMETRY ----- BPD 72.4 mm 29w 0d54% Hadlock OFD 97.9 mm 31w 4d98% Jj HC 273.5 mm 29w 6d58% Hadlock Cerebellum tr 36.0 mm 31w 2d88% Valles AC 254.5 mm 29w 4d75% Hadlock Femur 52.4 mm 27w 6d18% Hadlock Humerus 53.0 mm 30w 6d94% Jj HC / AC 1.07 35%Nicolaides Weight Calculation: EFW 1,328 g 28w 5d55% Hadlock EFW (lb,oz) 2 lb 15 oz EFW by Hadlock ([id number]) Head / Face / Neck Biometry: Product Distribution Specialist 5.1 mm CM 8.3 mm 87%Nicolaides Outer IOD 47.7 mm 30w 0d 58%Jj Extremities / Bony Struc Biometry: FL / BPD 0.72 FL / HC 0.19 FL / AC 0.21 GENERAL EVALUATION ----- Cardiac activity present. FHR 131 bpm. movements: present.Presentation: cephalic Placenta: Placental site: posterior Umbilical cord: Cord vessels: 3 vessel cord. Insertion site: placentalinsertion: suboptimal Amniotic fluid: Amount of AF: normal amount. MVP 5.5 cm. AZAM 16.7 cm. Q12.8 cm, Q2 4.4 cm, Q3 5.5 cm, Q4 3.9 cm ANATOMY ----- The following structures appear normal: Head / Neck Cranium. Lateral ventricles. Choroid plexus.Midline falx. Cavum septi pellucidi. Cerebellum. Cisterna magna. Face Lips. Profile. Nose. Palate. Orbits. Heart / Thorax RVOT view. LVOT view. Situs. Aortic arch view.Superior vena cava. Inferior vena cava. High short axis view. Cardiac rhythm. Diaphragm. Abdomen Abdominal wall. Stomach. Kidneys. Bladder. Spine Cervical spine. Thoracic spine. Lumbar spine.Sacral spine. Extremities / Arms. Right hand. Left hand. Legs. Right foot.Left foot. Skeleton The following structures could not be adequately visualized: Heart / Thorax 4-chamber view. 3-vessel view. 0-yudyjp-wxloyhnhfzu. Ductal arch view. MATERNAL STRUCTURES ----- Cervix Visualized Approach - Transabdominal Right Ovary Not visualized Left Ovary Not visualized GROWTH OVERVIEW ----- Exam date GA BPD (mm) HC (mm) AC (mm) FL(mm) HL (mm) EFW (g) 05/16/2024 28w 4d 72.4 54% 273.5 58% 254.5 75%52.4 18% 53.0 94% 1,328 55% COMMENT ----- Patient's name and date of were verified by the metal drill operator beforethe exam IMPRESSION ----- 1. Single living fetus with a gestational age of 28w 4d based on thereported clinical dates. 2. Current growth parameters are consistent with the stated EDC. The fetalsize is normal at the 55% (1328 g). 3. Detailed evaluation was performed and no structural abnormalitiesare noted. No gross structural abnormalities note. Suboptimal visualization secondary to maternal acoustics, fetalpositioning and advanced gestational age. No overt markers for aneuploidy identified. -Suboptimal views of PCI, 4CH, 3VV, 3VTV, DA. 4. The amniotic fluid is normal for gestational age (5.5 cm). 5. Placenta is posterior. No previa or low lying placenta noted. Recommendations: -Follow up growth sonograms at 4 week intervals -Twice weekly mBPP from 32 weeks until delivery Thank you for allowing us to participate in the care of this patient. us Jessica Higgins MD US ORDERABLES Final Res ult from Last 3 Months Insurance [facility]
[2024-07-04 14:39] LABS: Collection Time Urine 24 HOURS
[2024-07-04 19:33] LABS: Total Volume 24 Hour Urine 1500 ml
[2024-07-04 20:10] LABS: Creatinine Urine 114.7 mg/dL
[2024-07-05 13:56] LABS: Patient Weight 265 Lbs
[2024-07-05 16:35] LABS: Estimated Glomerular Filt Rate > 60
[2024-07-05 17:06] LABS: Creatinine Clearance Urine 186.1 ml/min (75-125)
[2024-07-07 06:13] LABS: Total Protein Urine 24 Hr 105 mg/24hr (28-141); Total Protein Urine Random 7 mg/dL
== END 2024-07-04 14:03 | disposition home or self-care (01) ==
PROVIDERS: Visit Provider Obstetrics & Gynecology Gynecology
DX: O13.3 Gestational [pregnancy-induced] hypertension without significant proteinuria, third trimester (principal); Z3A.00 Weeks of gestation of pregnancy not specified
CPT/HCPCS: 36415; 81050; 82565; 82575; 84156

== ENCOUNTER 2024-07-22 14:33 | Outpatient (RCR) | payer OTHER, SELFPAY ==
[2024-05-14 23:30] VITALS: BP 122/73; PULSE 91
[2024-07-11 00:46] VITALS: BP 128/79; PULSE 85
[2024-07-22 15:52] VITALS: BP 122/81; PULSE 109
== END 2024-08-12 23:59 | disposition home or self-care (01) ==
LOC: ANHOBOP 14:33
PROVIDERS: PCP Obstetrics & Gynecology Gynecology; Visit Provider Obstetrics & Gynecology Gynecology
DX: O24.419 Gestational diabetes mellitus in pregnancy, unspecified control (principal); Z3A.28 28 weeks gestation of pregnancy; O36.8130 Decreased fetal movements, third trimester, not applicable or unspecified; Z3A.37 37 weeks gestation of pregnancy; Z3A.38 38 weeks gestation of pregnancy
CPT/HCPCS: 59025; 84112

== ENCOUNTER 2024-07-28 06:33 | Inpatient (IN) | payer OTHER, SELFPAY ==
[2024-07-28] VITALS (206 sets, daily range): BP systolic 65–152; BP diastolic 30–128; PULSE 69–221; RESP 18; TEMP 36.6–37.1; O2SAT 83–100; BMI 44.5
--- OUTSIDE RECORDS SUMMARY | 2024-07-28 06:41 | XMS_ITS | Referral Summary ---
Author Organization [facility] Address [address] [place] [address] Care Team Providers Care Flour Worker Name Role Phone No, Physician Primary Care Provider [phone] Allergies No known active allergies Medications traMADoL [...] on file Legal Sex Female 5:02 PM LMFT Gender Identity Not on file Sexual Orientation Not on file Last Filed Vital Signs Vital Sign Reading Time Taken Comments Blood Pressure 107/87 01/20/2024 1:00 AM LMFT Pulse 87 01/20/2024 2:20 AM LMFT Temperature 37.1 C (98.7 F) 01/19/2024 9:54 PM LMFT Respiratory Rate 18 01/19/2024 9:54 PM LMFT Oxygen Saturation 97% 01/20/2024 2:20 AM LMFT Inhaled Oxygen Concentration - - Weight 108.4 kg (239 lb) 01/19/2024 9:54 PM LMFT Height 162.6 cm (5' 4) 01/19/2024 9:54 PM LMFT Body Mass Index 41.02 01/19/2024 9:54 PM LMFT Plan of Treatment Not on file Insurance [employer] Care Teams Flour Worker Relationship Specialty Start Date End Date No, Physician PCP - General 10/03/17
--- OUTSIDE RECORDS SUMMARY | 2024-07-28 06:41 | XMS_ITS | Clinical Summary ---
Author Organization [facility] Address [address] [place] [address] Phone Care Team Providers Care Over The Road Driver Name Role Phone Unavailable Primary Care Provider Unavailabl e Allergies No known active allergies Medications vits15/iron/fol ic/dss ( VIT 18-UZPA-DXLIE-D SS ORAL) Take by mouth. Activ e [...] Encounters Date Type Department Care Team Description 07/19/2024 External Device Data STL ABSTRACTION Provider, Abstract 07/13/2024 External Device Data STL ABSTRACTION Provider, Abstract 07/12/2024 External Device Data STL ABSTRACTION Provider, Abstract 07/10/2024 Refill [facility] [address] [place] [address] Clementina Santos NP Gestational diabetes mellitus, class A2 06/23/2024 Telephone [facility] - Medical Arrey B [address] [place] [address] Dimple Zazueta Follow Up 06/22/2024 Telephone [facility] Medical Arrey B [address] [place] [address] Gestational Diabetes 06/21/2024 External Device Data STL ABSTRACTION Provider, Abstract 06/21/2024 External Device Data STL ABSTRACTION Provider, Abstract 06/13/2024 7:30 AM CDT - 06/13/2024 11:59 PM CDT Hospital Encounter [facility] Abdelrahman Altamirano [address] [place] [address] Jessica Del Toro MD Discharge Disposition: Home or Self Care 06/06/2024 Chart Note [facility] Medical Arrey B [address] [place] [address] Yaneth Awad MD Gestational Diabetes 05/26/2024 Orders Only [facility] Medical Arrey B [address] [place] [address] Bertha Jin, RN 05/23/2024 Chart Note [facility] [address] [place] [address] Clementina Santos NP Diabetes 05/18/2024 10:45 AM CDT Video Visit [facility] [address] [place] [address] Clementina Santos NP Gestational diabetes mellitus, class A2 (Primary Dx); Obesity affecting in third trimester, unspecified obesity type; 28 weeks gestation of 05/18/2024 Chart Note [facility] Medical Arrey B [address] [place] [address] Lisa Sanchez RN 05/18/2024 Chart Note [facility] [address] [place] [address] Clementina Santos NP Diabetes 05/17/2024 External Device Data STL ABSTRACTION Provider, Abstract 05/17/2024 External Device Data STL ABSTRACTION Provider, Abstract 05/17/2024 External Device Data STL ABSTRACTION Provider, Abstract 05/17/2024 Telephone [facility] Arrey B [address] [place] [place] [address] Lisa Sanchez RN Medical Records 05/17/2024 Abstract [facility] Arrey B [address] [place] [address] Lisa Sanchez RN 05/16/2024 9:41 AM CDT - 05/16/2024 11:59 PM CDT Hospital Encounter [facility] [address] [place] [address] Jessica Del Toro MD Discharge Disposition: Home or Self Care 05/02/2024 Abstract [facility] Arrey B [address] [place] [address] Berna Jorge 04/29/2024 Orders Only [facility] [address] [place] [phone] Jessica Del Toro MD Gestational diabetes mellitus (GDM), antepartum, gestational [...] on file Legal Sex 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 Name: HIEN ARCHER Study Date: 06/13/2024 7:30am Pat. NO: [id number] Referring MD: JESSICA DEL TORO MD Site: [facility] Quality Control Technician: Tiffanie Cotton RDMS : 1990 Age: 33 ----- INDICATION ----- Gestational Diabetes, Insulin Controlled Maternal Obesity (BMI>40) Complicating Screening Follow-Up CODING ----- Diagnoses Z3A.32: Weeks of gestation O99.213: Obesity complicating O24.414: Gestational diabetes mellitus in , insulin controlled Z36.2: Encounter for other screening follow-up Procedures 91645: Ultrasound, uterus, real time with image documentation, [...] 5 lb 2 oz EFW by Hadlock ([id number]) Head / Face / Neck Biometry: Belt Cutter 2.5 mm Extremities / Bony Struc Biometry: [...] and date of were verified by the poker room manager prior to the exam IMPRESSION ----- Viable [...] Pat. Name:Tam ARCHER Date:06/13/2024 7:30am Pat. NO: [id number] MD:JESSICA DEL TORO MD [facility] Cotton RDMS :1990Age:33 ----- INDICATION ----- Gestational Diabetes, Insulin Controlled Maternal Obesity (BMI>40) Complicating Screening Follow-Up CODING ----- Diagnoses Z3A.32: Weeks of gestation O99.213: Obesity complicating O24.414: Gestational diabetes mellitus inpregnancy, insulin controlled Z36.2: Encounter for other screeningfollow-up Procedures 94291: Ultrasound, uterus, real time withimage documentation, follow up, transabdominal approach per fetus METHOD ----- Transabdominal ultrasound examination ----- [place] . Number of fetuses: 1 DATING ----- GA by prior [id number] w + 4 d BEAR by prior [...] 5 lb 2 oz EFW by Hadlock ([id number]) Head / Face / Neck Biometry: Belt Cutter 2.5mm Extremities / Bony Struc Biometry: FL [...] and date of were verified by the poker room manager prior tothe exam IMPRESSION ----- Viable at [...] cord insertion cannot be visualized. us Jessica Del Toro MD US ORDERABLES Final Res ult * US OB DETAIL SINGLE GEST (05/16/2024 10:44 AM CDT) Anatomical Region Laterality Modality Pelvis Ultrasound 05/16/2024 9:46 AM CDT Narrative 05/16/2024 10:48 AM CDT STL COMP ----- Pat. Name: HIEN ARCHER Study Date: 05/16/2024 9:46am Pat. NO: [id number] Referring MD: JESSICA DEL TORO MD Site: [facility] Quality Control Technician: Tiffanie Cotton RDMS : 1990 Age: 33 ----- INDICATION ----- Anatomy Survey no genetics Gestational Diabetes, Insulin Controlled Maternal Obesity (BMI>40) Complicating CODING ----- Diagnoses Z3A.28: Weeks of gestation O99.213: Obesity complicating Z36.3: Encounter for screening for malformations O24.414: Gestational diabetes mellitus in , insulin controlled Procedures 94739: Ultrasound, uterus, real time with image documentation, and maternal evaluation plus detailed anatomic examination, transabdominal approach MATERNAL ASSESSMENT ----- Physical Exam Weight 117 kg. BMI 42.77 kg/m METHOD ----- Transabdominal ultrasound examination ----- [place] . Number of fetuses: 1 DATING ----- Method of dating: based on stated EBAR GA by prior assessment 28 w + [...] 2 lb 15 oz EFW by Hadlock ([id number]) Head / Face / Neck Biometry: Belt Cutter 5.1 mm CM 8.3 mm 87% Nicolaides [...] Heart / Thorax 4-chamber view. 3-vessel view. 4-plmbbz-qncjfjq view. Ductal arch view. MATERNAL STRUCTURES ----- [...] and date of were verified by the poker room manager before the exam IMPRESSION ----- 1. Single [...] Pat. Name:Tam ARCHER Date:05/16/2024 9:46am Pat. NO: [id number] MD:JESSICA DEL TORO MD [facility]Tiff[facility] Cotton RDMS :1990Age:33 ----- INDICATION ----- Anatomy Survey no genetics Gestational Diabetes, Insulin Controlled Maternal Obesity (BMI>40) Complicating CODING ----- Diagnoses Z3A.28: Weeks of gestation O99.213: Obesity complicating Z36.3: Encounter for screening formalformations O24.414: Gestational diabetes mellitus inpregnancy, insulin controlled Procedures 05800: Ultrasound, uterus, real time withimage documentation, and maternal evaluation plus detailed anatomic examination,transabdominal approach MATERNAL ASSESSMENT ----- Physical Exam Weight 117 kg. BMI 42.77 kg/m METHOD ----- Transabdominal ultrasound examination ----- [place] . Number of fetuses: 1 DATING ----- Method of dating:based on stated BEAR GA by prior [id number] w + 4 d BEAR by prior [...] 2 lb 15 oz EFW by Hadlock ([id number]) Head / Face / Neck Biometry: Belt Cutter 5.1 mm CM 8.3 mm 87%Nicodawitides Outer IOD 47.7 mm 30w 0d 58%Jj [...] Heart / Thorax 4-chamber view. 3-vessel view. 1-gpbyli-zhdfydoarmo. Ductal arch view. MATERNAL STRUCTURES ----- Cervix Visualized Approach - Transabdominal Right Ovary Not visualized Left Ovary Not visualized GROWTH OVERVIEW ----- Exam date GA BPD (mm) HC (mm) AC (mm) FL(mm) HL (mm) EFW (g) 05/16/2024 28w 4d 72.4 54% 273.5 58% 254.5 75%52.4 18% 53.0 94% 1,328 55% COMMENT ----- Patient's name and date of were verified by the poker room manager beforethe exam IMPRESSION ----- 1. Single living [...] the care of this patient. us Jessica Del Toro MD US ORDERABLES Final Res ult from Last 3 Months Insurance [facility]
--- OUTSIDE RECORDS SUMMARY | 2024-07-28 06:41 | XMS_ITS | Clinical Summary ---
Author Organization [facility] Address [address] [place] [address] Care Team Providers Care Pets And Pet Supplies Salesperson Name Role Phone Unavailable Primary Care Provider Unavailabl e Source Comments [facility],non-owned Affiliates and Associated Physician Practices is amultiple site organization consisting of ambulatory clinics and hospital sitesin [place], [place], [place] and [place]. This disclosure is being madepursuant to the Care Everywhere program and may not contain all information available regarding this patient. Last updated 17.[facility] Encounters Date Type Department Care Team Description 07/11/2024 9:33 AM CDT - 07/11/2024 11:59 PM CDT Hospital Encounter [facility] [address] [place], [place] [id number] Ana Paula Sargent MD Discharge Disposition: Home or Self Care from Last 3 Months Social History Tobacco Use Types Packs/Day Years Used Date Smoking Tobacco: Never Assessed Estimated Date of Delivery Comme nts Yes 08/05/2024 Based on Ultraso und Sex and Gender Information Value Date Recorded Sex Assigned at Not on file Legal Sex Female 12:54 PM CDT Gender Identity Not on file Sexual Orientation Not on file Plan of Treatment Health Maintenance Due Date Last Done Comments PAP SMEAR 1990 HIV SCREENING 06/23/2006 HEPATITIS C SCREENING 06/19/2009 DTAP/TDAP/TD VACCINES (1 - Tdap) 06/23/2010 HEPATITIS B VACCINE (1 of 3 - 19+ 3-dose series) 06/23/2010 COVID-19 VACCINE (2023-2 5 season) 2023 DEPRESSION SCREENING 02/24/2024 OB-ONE HOUR GLUCOSE 04/29/2024 OB-TDAP CURRENT 05/06/2024 OB-RHOGAM INJECTION 05/13/2024 OB-GROUP B STREP SCREEN 07/01/2024 INFLUENZA VACCINE (Season Ended) 2024 ZOSTER VACCINE [...] on patient's age to complete this topic Respiratory Syncytial Virus (RSV) Vaccine Pt: or over 60 yrs (No Doses Required) Completed Procedures Procedure Name Priority Date/Time Associated Diagnosis Comments SONOGRAM - COMPLETE Routine 07/11/2024 9 :46 AM CDT Insulin controlled gestational diabetes mellitus (GDM) in third trimester (HCC) 36 weeks gestation of (HCC) Obesity affecting in third trimester, unspecified obesity type (HCC) from Last 3 Months Results * SONOGRAM - COMPLETE (07/11/2024 9:46 AM CDT) Linked Results Indication ======== Third trimester growth Insulin-controlle d GDM No genetics History ====== OB History 3. Para 1 Maternal Assessment Physical Exam Height 165 cm, 5 ft 5 in. Weight 121 kg, 266 lb. Initial weight 104 kg, 230 lb. BMI 44.27 kg/m . Initial BMI 38.27 kg/m . Weight gain 16 kg, 36 lb Method ====== Transabdominal ultrasound. View: Suboptimal view: limited by late gestational age ========= [place] . Number of fetuses: 1 Dating ====== Date Details Gest. age BEAR Stated BEAR 36 w + 3 d 08/05/2024 U/S 07/11/2024 based upon AC, BPD, Femur, HC 38 w + 3 d 07/22/2024 Assigned dating based on stated BEAR, selected on 07/11/2024 36 w + 3 d 08/05/2024 General Evaluation Cardiac activity present. FHR 127 bpm. Presentation: cephalic Placenta: Placental site: posterior; fundal Umbilical cord: Cord vessels: suboptimal. Insertion site: normal insertion Amniotic fluid: Amount of AF: high normal. MVP 8.6 cm. AZAM 24.1 cm. Q1 8.6 cm, Q2 6.1 cm, Q3 5.5 cm, Q4 4.0 cm Biometry BPD 91.8 mm 37w 2d 82% Hadlock HC 341.0 mm 39w 2d 86% Hadlock AC 359.3 mm 39w 6d >99% Hadlock Femur 72.2 mm 37w 0d 61% Hadlock Humerus 63.2 mm 36w 5d 77% Jj HC / AC 0.95 -/- Hadlock Weight Calculation: EFW 3,609 g 97% Hadlock EFW (lb,oz) 7 lb 15 oz EFW by Hadlock ([id number]) LGA Growth Overview Exam date GA BPD (mm) HC (mm) AC (mm) FL (mm) HL (mm) EFW (g) 07/11/2024 36w 3d 91.8 82% 341 86% 359.3 >99% 72.2 61% 63.2 77% 3609 97% Anatomy The following structures appear normal: Heart / Thorax Situs. Diaphragm. Abdomen Stomach. Kidneys. Bladder. Genitals. Spine Cervical spine. Thoracic spine. Lumbar spine. Sacral spine. The following structures could not be adequately visualized: Head / Neck Cranium. Lateral ventricles. Choroid plexus. Midline falx. Cavum septi pellucidi. Cerebellum. Cisterna magna. Thalami. Face Lips. Profile. Nose. Nasal bone. Orbits. Heart / Thorax 4-chamber view. RVOT view. LVOT view. 3-vessel view. 7-jpgmac-rjwucxi view. Aortic arch view. Bicaval view. Ductal arch view. Great vessels. Right lung. Left lung. Abdomen Cord insertion. Bowel. Extremities / Skeleton Arms. Hands. Legs. Feet. sex: male. Biophysical Profile 2: breathing movements 2: Gross body movements 2: tone 2: Amniotic fluid volume 09/30 Biophysical profile score Maternal Structures Right Ovary Not visualized Left Ovary Not visualized Impression ========= This is the first exam at our facility at this late gestational age. Single live intrauterine at 36w 3d The size is LGA. BPP: 09/30 The amniotic fluid volume is normal No major malformations were seen within the limitations of ultrasound. - anatomic survey is limited by gestational age and crowding. Comment ======== ultrasound alone cannot detect all structural, genetic, or functional , placental, or maternal abnormalities Follow-up ======== Continue weekly BPP with 2x weekly NST. The patient states she is having twice weekly testing at her primary OB office. Growth US in 3 weeks, if undelivered. Coding ====== Procedures 37482: US Preg Uterus Detailed 55443: Biophysical Profile W/O NST [facility] PACS Anatomical Region Laterality Modality Other 07/11/2024 9:46 AM CDT us Jessica Higgins MD [facility] ORDERABLES Edited Resu lt - Final from Last 3 Months Insurance [facility]
--- OUTSIDE RECORDS SUMMARY | 2024-07-28 06:41 | XMS_ITS | Clinical Summary ---
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 Gender Identity Not on file Sexual Orientation Not on file Obstetrics History Para Term AB IAB SAB Ectopic Multiple Livin g Live Births 1 Date Outcome GA Total Labor Labor/2nd/3rd Weight Sex Type Anes PTL Rajni A1 A5 Name Clin Current Last Filed Vital Signs Vital Sign Reading Time Taken Comments Blood Pressure 107/87 01/20/2024 1:00 AM BINDERY MACHINE FEEDER OFFBEARER Pulse 87 01/20/2024 2:20 AM BINDERY MACHINE FEEDER OFFBEARER Temperature 37.1 C (98.7 F) 01/19/2024 9:54 PM BINDERY MACHINE FEEDER OFFBEARER Respiratory Rate 18 01/19/2024 9:54 PM BINDERY MACHINE FEEDER OFFBEARER Oxygen Saturation 97% 01/20/2024 2:20 AM BINDERY MACHINE FEEDER OFFBEARER Inhaled Oxygen Concentration - - Weight 108.4 kg (239 lb) 01/19/2024 9:54 PM BINDERY MACHINE FEEDER OFFBEARER Height 162.6 cm (5' 4) 01/19/2024 9:54 PM BINDERY MACHINE FEEDER OFFBEARER Body Mass Index 41.02 01/19/2024 9:54 PM BINDERY MACHINE FEEDER OFFBEARER Plan of Treatment Health Maintenance Due Date [...] complete this topic Insurance IDPA Care Teams Abattoir Supervisor Relationship Specialty Start Date End Date No, Physician PCP - General 10/03/17
--- NOTE | 2024-07-28 07:24 | WPDOBADMIT ---
Obstetrics - Admit Note Admission Note: record reviewed. No pertinent additions to the history and/or any subsequent changes in the physical findings that are not consistent with the expected course of the were found. Additions to the history and/or subsequent changes in the physical findings follow. Here at 39 wk for MIL due to DM. Cervix 2-3/70/-2 AROM with clear fluid (copious amounts). FHTs reactive
[2024-07-28 07:29] LABS: Glucose Point of Care 73 mg/dl (65-105)
[2024-07-28 07:39] LABS: Basophils Percent Auto 0.2 % (0.2-1.2); Eosinophils Absolute Auto 0.1 K/mm3 (0-0.3); Eosinophils Percent Auto 0.8 % (0-4.4); Immature Granulocyte Absolute 0.08 K/mm3 (0.00-0.031); Immature Granulocyte Percent A 0.7 % (0-0.5); Lymphocytes Absolute Auto 2.19 K/mm3 (0.9-3.2); Lymphocytes Percent Auto 19.3 % (18.3-44.2); Mean Corpuscular HGB Conc 32.5 g/dl (32-36); Mean Corpuscular Hemoglobin 30.8 pg (26-34); Mean Corpuscular Volume 94.8 fl (80-100); Mean Platelet Volume 10.4 fl (7.4-10.4); Monocytes Absolute Auto 0.8 K/mm3 (0.1-0.6); Monocytes Percent Auto 6.8 % (2.6-8.5); Neutrophils Absolute Auto 8.2 K/mm3 (1.3-6.7); Neutrophils Percent Auto 72.2 % (45.5-73.1); Platelet Count Result 248 k/mm3 (150-375); Red Blood Count 4.22 M/mm3 (4.2-5.4); Red Cell Distribution Width 14.7 % (11.5-14.5); White Blood Count 11.3 K/mm3 (4.5-10.0)
--- NOTE | 2024-07-28 07:41 | LDADM ---
This patient, Hien Adams, was admitted to Labor/Delivery/Recovery 103 on 07/28/24 at 06:33. Plans for labor, pain management and were discussed with patient. Patient/family oriented to hospital policies and general routines including ID bracelet, bed and alarms, visiting hours, pain management, procedures, bathroom and other care routines, personal items, smoking policy, room service/diet and guest tray routines, infant security routines, and visiting hours. Patient/Family are encouraged to report perceived risks to care and to ask questions if they do not understand what they are told or what they should do. See OBIX for further documentation.
[2024-07-28] MEDS: OXYTOCIN 30 UNITS/NS 500 ML 30 UNITS/500 ML BAG IV CONT (08:27)
[2024-07-28] MEDS: LACTATED RINGERS 1,000 ML 125 ML IV CONT ×2 (08:27→12:53)
[2024-07-28 08:28] LABS: HIV 1/2 Ab P24 Ag Result Negative (Negative)
[2024-07-28 09:45] LABS: Syphilis IgG/IgM Antibody Negative (Negative)
[2024-07-28] MEDS: fentaNYL CITRATE INJ (*CRX) 100 MCG/2 ML VIAL 50 MCG IV PUSH (09:47)
[2024-07-28] MEDS: FAMOTIDINE 20 MG/2 ML VIAL IV PUSH (09:50)
[2024-07-28 10:23] LABS: Glucose Point of Care 56 mg/dl (65-105)
[2024-07-28 10:44] LABS: Glucose Point of Care 71 mg/dl (65-105)
--- NOTE | 2024-07-28 11:00 | WPDANESEPP ---
Anes - Eval Pre Procedure Procedure: labor epidural Date/Time: 07/28/24 11:00 Preop Diagnosis: labor pain Pre Op Diagnosis: Induction of Labor Patient Data Age: 34 Gender: F Height: 1.65 m Weight: 121.5 kg Last Vital Signs Pulse 92 07/28/24 10:30 BP 150/99 H 07/28/24 10:30 Pulse Ox 100 07/28/24 10:56 O2 Del Method Room Air 07/28/24 07:28 Allergies Allergy/AdvReac Type Severity Reaction Status Date / Time No Known Allergies Allergy Verified 07/28/24 06:46 Laboratory Tests 07/28/24 07/28/24 07/28/24 07:24 07:25 10:19 WBC 11.3 H K/mm3 (4.5-10.0) RBC 4.22 M/mm3 (4.2-5.4) Hgb 13.0 g/dL (12.0-15.0) Hct 40.0 % (37.0-47.0) MCV 94.8 fl (80-100) MCH 30.8 pg (26-34) MCHC 32.5 g/dl (32-36) RDW 14.7 H % (11.5-14.5) Plt Count 248 k/mm3 (150-375) MPV 10.4 fl (7.4-10.4) Immature Gran % (Auto) 0.7 H % (0-0.5) Neut % (Auto) 72.2 % (45.5-73.1) Lymph % (Auto) 19.3 % (18.3-44.2) Tompkins % (Auto) 6.8 % (2.6-8.5) Eos % (Auto) 0.8 % (0-4.4) Baso % (Auto) 0.2 % (0.2-1.2) Lymph # (Auto) 2.19 K/mm3 (0.9-3.2) Tompkins # (Auto) 0.8 H K/mm3 (0.1-0.6) Eos # (Auto) 0.1 K/mm3 (0-0.3) Baso # (Auto) 0.0 K/mm3 (0.0-0.1) Abs Immat Gran (auto) 0.08 H K/mm3 (0.00-0.031) Absolute Neuts (auto) 8.2 H K/mm3 (1.3-6.7) Absolute Nucleated RBC 0.000 K/mm3 (0.0-0.012) Nucleated RBC % 0.0 % (0.0-0.2) POC Capillary Glucose 73 mg/dl 56 L* mg/dl (65-105) (65-105) Syphilis IgG/IgM Ab Negative (Negative) HIV 1&2 Ab/P24 Ag 4thGn Negative (Negative) Blood Type O Positive Antibody Screen Negative 07/28/24 10:39 WBC RBC Hgb Hct MCV MCH MCHC RDW Plt Count MPV Immature Gran % (Auto) Neut % (Auto) Lymph % (Auto) Tompkins % (Auto) Eos % (Auto) Baso % (Auto) Lymph # (Auto) Tompkins # (Auto) Eos # (Auto) Baso # (Auto) Abs Immat Gran (auto) Absolute Neuts (auto) Absolute Nucleated RBC Nucleated RBC % POC Capillary Glucose 71 mg/dl (65-105) Syphilis IgG/IgM Ab HIV 1&2 Ab/P24 Ag 4thGn Blood Type Antibody Screen Patient hx anesthesia problems: none Family hx anesthesia problems: none Results Review: All pre-operative results and documents have been reviewed as part of the pre-operative evaluation. FORMERLY [facility], [facility] Past Medical History Medical History (Updated 07/28/24 @ 11:01 by Mckenna Montes De Oca CRNA) Former smoker Morbid obesity Hypothyroid Gestational diabetes Social History Social History Smoking status: Former smoker Tobacco type: e-cigarettes/vaping Second hand tobacco smoke exposure: No Substance use: never Spiritual care concerns: No Exam Day of Procedure 07/28/24 11:00 Patient weight: morbidly obese Heart: regular rate and rhythm Lungs: clear to auscultation Airway: Mallampati scale class III Neurological: alert and oriented
[2024-07-28 13:20] LABS: Glucose Point of Care 102 mg/dl (65-105)
[2024-07-28 15:26] LABS: Glucose Point of Care 72 mg/dl (65-105)
[2024-07-28 17:30] LABS: Glucose Point of Care 65 mg/dl (65-105)
[2024-07-28 18:22] LABS: Glucose Point of Care 78 mg/dl (65-105)
[2024-07-28 18:22] LABS: Glucose Point of Care 60 mg/dl (65-105)
--- NOTE | 2024-07-28 18:35 | PM.OBPRVD ---
OB - Vaginal Delivery Note Procedure Delivery date: 07/28/24 Events: Other (Class B vs GDMA2) Induction method: AROM and Per Pitocin Protocol Delivery monitor: External FHT and Internal Uterine Route of delivery: Episiotomy description: None Laceration Description: Periurethral and Perineal - 1st Degree Delivery repair: vicryl (3-0) Specimen: Yes (placenta) Quantitative Blood Loss (ml): 150 Anesthesia type: Epidural Disposition: Floor Complications: No immediate complications Baby Date of : 07/28/24 Gestational Age by Date: 39 gender: Male Weight (pounds): 9 Weight (ounces): 6 presentation: vertex position: Left Occiput Anterior Placenta delivery description: Spontaneous Cord Vessel Description: 3 Vessels and Nuchal Cord score one minute: 8 score five minutes: 9 Narrative: No shoulder dystocia
--- NOTE | 2024-07-28 18:37 | P.DS_ITS ---
DS: Admitting Diagnosis Discharge Date 07/30/24 Admitting Diagnosis IUP 39 wks GDMA2 vs Class B NIDDM DS: Discharge Diagnosis Discharge Diagnosis (1) (normal spontaneous vaginal delivery): Code(s): O80 - Encounter for full-term uncomplicated delivery Status: Acute (2) GDM, class A2: Code(s): O24.419 - Gestational diabetes mellitus in , unspecified control Status: Acute OB - DS: Summary OB Procedures : NST and Ultrasound OB Procedures Intrapartum: Spontaneous Vag Delivery OB Procedures: : None Peripartum Data Delivery Method: Natural Vaginal Laceration Description: Periurethral and Perineal - 1st Degree Episiotomy description: None complications: none Status at Discharge Functional status at discharge: independent ambulation Overall status at discharge: patient is progressing back to baseline Time Spent with Patient Time attestation: Total time spent providing and/or coordinating discharge services: DS: Data Data Completed and Pending Labs on day of discharge: Labs from last 24 hours 07/28/24 07/28/24 07/28/24 17:53 17:44 17:28 WBC RBC Hgb Hct MCV MCH MCHC RDW Plt Count MPV Immature Gran % (Auto) Neut % (Auto) Lymph % (Auto) [place] % (Auto) Eos % (Auto) Baso % (Auto) Lymph # (Auto) [place] # (Auto) Eos # (Auto) Baso # (Auto) Abs Immat Gran (auto) Absolute Neuts (auto) Absolute Nucleated RBC Nucleated RBC % POC Capillary Glucose 78 60 L 65 Syphilis IgG/IgM Ab HIV 1&2 Ab/P24 Ag 4thGn Blood Type Antibody Screen 07/28/24 07/28/24 07/28/24 15:22 13:13 10:39 WBC RBC Hgb Hct MCV MCH MCHC RDW Plt Count MPV Immature Gran % (Auto) Neut % (Auto) Lymph % (Auto) [place] % (Auto) Eos % (Auto) Baso % (Auto) Lymph # (Auto) [place] # (Auto) Eos # (Auto) Baso # (Auto) Abs Immat Gran (auto) Absolute Neuts (auto) Absolute Nucleated RBC Nucleated RBC % POC Capillary Glucose 72 102 71 Syphilis IgG/IgM Ab HIV 1&2 Ab/P24 Ag 4thGn Blood Type Antibody Screen 07/28/24 07/28/24 07/28/24 10:19 07:25 07:24 WBC 11.3 H RBC 4.22 Hgb 13.0 Hct 40.0 MCV 94.8 MCH 30.8 MCHC 32.5 RDW 14.7 H Plt Count 248 MPV 10.4 Immature Gran % (Auto) 0.7 H Neut % (Auto) 72.2 Lymph % (Auto) 19.3 [place] % (Auto) 6.8 Eos % (Auto) 0.8 Baso % (Auto) 0.2 Lymph # (Auto) 2.19 [place] # (Auto) 0.8 H Eos # (Auto) 0.1 Baso # (Auto) 0.0 Abs Immat Gran (auto) 0.08 H Absolute Neuts (auto) 8.2 H Absolute Nucleated RBC 0.000 Nucleated RBC % 0.0 POC Capillary Glucose 56 L* 73 Syphilis IgG/IgM Ab Negative HIV 1&2 Ab/P24 Ag 4thGn Negative Blood Type O Positive Antibody Screen Negative Discharge Plan Discharge Attending physician on discharge: Jessica Higgins Discharging Clinician: Jessica Higgins Anticipated Discharge Date/Time: 07/30/24 18:38 Patient Disposition: Home Activity: may shower and pelvic rest Diet: regular Patient Instructions: Antibiotic Form Patient Language: Kinyarwanda Stand Alone Forms: General Discharge Information Follow-up/Referrals: Jessica Higgins MD [Physician] - 6 Weeks Discharge Medications: Continued levothyroxine 25 mcg tablet metformin 500 mg tablet extended release 24 hr 1,000 mg PO BID Discontinued insulin lispro 100 unit/mL insulin pen 24 unit SUBCUT .am Patient Comments: with breakfast Humulin N NPH Insulin KwikPen 100 unit/mL (3 mL) insulin pen 35 unit SUBCUT BID Patient Comments: Takes before breakfast and at HS levothyroxine 25 mcg tablet 25 mcg PO DAILY@0630 insulin lispro [Humalog U-100 Insulin] 100 unit/mL solution 28 unit subcut QACDINNER Date of admission: 07/28/24 06:33 Primary Care Provider: UNKNOWN,DOCTOR Admitting Provider: Jessica Higgins Attending physician on admission: Jessica Higgins Condition: Stable
[2024-07-28] MEDS: OXYTOCIN 30 UNITS/NS 500 ML 30 UNITS/500 ML BAG 125 UNITS IV CONT (19:03)
[2024-07-28] MEDS: LORATADINE 10 MG TABLET PO (20:06)
[2024-07-28] MEDS: INSULIN ASPART (*BKC) 100 UNITS/ML 14 UNITS SUB-Q (20:20)
--- NOTE | 2024-07-28 20:33 | S_PTH ---
PATIENT: Hien Adams LOC: [facility] U#:[id number] AGE/SX: 34/F ROOM: 284 RE07/28/[address]: Jessica Higgins MD : 1990 BED: 00 DIS: 07/30/2024 SPEC #: [id number] RECD: 07/29/24 07:33 STATUS: MARCUS REKathy #: [id number] SHANDA: 07/28/24 20:[address]: Jessica Higgins DEPT: [facility] Surgical RECD BY: Ryann Balderas ENTERED: 07/29/24 07:33 SP TYPE: Surgical OTHR DR: UNKNOWN,DOCTOR Tissues: A - Placenta Procedures: Hematoxylin and Eosin Stain Gross and Microscopic Level 5
[2024-07-28] MEDS: IBUPROFEN 600 MG TABLET PO (22:03)
[2024-07-28] MEDS: ACETAMINOPHEN 325 MG TABLET 650 MG PO (22:03)
[2024-07-29] MEDS: INSULIN HUMAN NPH (*BKC) 100 UNITS/ML 17 UNITS SUB-Q ×3 (00:16→22:10)
[2024-07-29 00:55] VITALS: BP 124/85; PULSE 96; RESP 20; TEMP 36.9; O2SAT 97
[2024-07-29 03:50] VITALS: BP 125/89; PULSE 94; RESP 18; TEMP 36.6; O2SAT 97
[2024-07-29 04:56] LABS: Hematocrit 37.4 % (37.0-47.0); Hemoglobin 12.2 g/dL (12.0-15.0)
--- NOTE | 2024-07-29 06:05 | OBPPTRN ---
Patient transferred to post room #284 via ( wheelchair). Support person present. Oriented to unit, room, information board, rooming in, admission packet and security measures. Patient verbalizes understanding.
[2024-07-29] MEDS: LEVOTHYROXINE SODIUM 25 MCG TABLET PO (06:31)
[2024-07-29] MEDS: SIMETHICONE 80 MG TAB.CHEW PO ×2 (06:31→22:09)
--- NOTE | 2024-07-29 07:40 | P.PNOB_ITS ---
OB - PN: Subj Subjective Date/time seen: 07/29/24 07:40 Patient comments: no complaints, pain well controlled and other (asymptomatic with slight low this morning) [place] baby status: doing well and other (some low sugars) OB - PN: Obj Data Labs 07/29/24 04:09 Labs: Laboratory Results - last 24 hr 07/28/24 07/28/24 07/28/24 07:24 10:19 10:39 WBC 11.3 H RBC 4.22 Hgb 13.0 Hct 40.0 MCV 94.8 MCH 30.8 MCHC 32.5 RDW 14.7 H Plt Count 248 MPV 10.4 Immature Gran % (Auto) 0.7 H Neut % (Auto) 72.2 Lymph % (Auto) 19.3 [place] % (Auto) 6.8 Eos % (Auto) 0.8 Baso % (Auto) 0.2 Lymph # (Auto) 2.19 [place] # (Auto) 0.8 H Eos # (Auto) 0.1 Baso # (Auto) 0.0 Abs Immat Gran (auto) 0.08 H Absolute Neuts (auto) 8.2 H Absolute Nucleated RBC 0.000 Nucleated RBC % 0.0 POC Capillary Glucose 56 L* 71 Syphilis IgG/IgM Ab Negative HIV 1&2 Ab/P24 Ag 4thGn Negative Blood Type O Positive Antibody Screen Negative 07/28/24 07/28/24 07/28/24 13:13 15:22 17:28 WBC RBC Hgb Hct MCV MCH MCHC RDW Plt Count MPV Immature Gran % (Auto) Neut % (Auto) Lymph % (Auto) [place] % (Auto) Eos % (Auto) Baso % (Auto) Lymph # (Auto) [place] # (Auto) Eos # (Auto) Baso # (Auto) Abs Immat Gran (auto) Absolute Neuts (auto) Absolute Nucleated RBC Nucleated RBC % POC Capillary Glucose 102 72 65 Syphilis IgG/IgM Ab HIV 1&2 Ab/P24 Ag 4thGn Blood Type Antibody Screen 07/28/24 07/28/24 07/29/24 17:44 17:53 04:09 WBC RBC Hgb 12.2 Hct 37.4 MCV MCH MCHC RDW Plt Count MPV Immature Gran % (Auto) Neut % (Auto) Lymph % (Auto) [place] % (Auto) Eos % (Auto) Baso % (Auto) Lymph # (Auto) [place] # (Auto) Eos # (Auto) Baso # (Auto) Abs Immat Gran (auto) Absolute Neuts (auto) Absolute Nucleated RBC Nucleated RBC % POC Capillary Glucose 60 L 78 Syphilis IgG/IgM Ab HIV 1&2 Ab/P24 Ag 4thGn Blood Type Antibody Screen OB - PN A/P Assessment and Plan (1) GDM, class A2: Code(s): O24.419 - Gestational diabetes mellitus in , unspecified control Status: Acute Assessment and Plan: Likely Class B DM Will observe sugars today on 1/2 insulin and metformin and adjust as needed. Plan day: 1 Plan: routine care Time Spent With Patient Time: Total time spent is greater than 50% in coordination of care (as documented) at patient's floor/unit and/or counseling patient: Exam 2 : Bimanual exam- vagina & uterus: other (Uterus firm, nt @U)
[2024-07-29 07:50] VITALS: BP 132/78; PULSE 91; RESP 18; TEMP 36.6; O2SAT 97
[2024-07-29] MEDS: IBUPROFEN 600 MG TABLET PO ×3 (08:01→22:09)
[2024-07-29] MEDS: MULTIVIT/MIN/PREN/FOL AC/IRON TABLET 1 TAB PO (08:28)
[2024-07-29] MEDS: metFORMIN HCL XR 500 MG TAB.SR.24H 1000 MG PO ×2 (08:28→18:05)
[2024-07-29] MEDS: DOCUSATE SODIUM 100 MG CAPSULE PO ×2 (08:28→16:01)
[2024-07-29] MEDS: INSULIN ASPART (*BKC) 100 UNITS/ML 12 UNITS SUB-Q (08:29)
[2024-07-29 12:13] VITALS: BP 103/73; PULSE 87; RESP 18; TEMP 35.6; O2SAT 98
--- NOTE | 2024-07-29 13:25 | PC.NURSE ---
Introductions were made, then consulted with patient to assess needs related to . Patient is pumping and bottle feeding. She has her own Mom Cozy pump and states that she has no questions or concerns about pumping. Resources provided for inpatient and outpatient services with the feeding sheet, mom/baby guide and name written on the communication board. Mother voiced understanding of information and will call if there is a request for assistance. Reported to the Primary RN.?
--- NOTE | 2024-07-29 14:44 | WPDANLDPN2 ---
Anes-Prog Note L&D Date/Time: 07/29/24 14:44 Comfortable throughout: labor and delivery Neuraxial method: epidural Epidural/Spinal procedure site: clean & non-tender Neuro status: Neuro function grossly intact. Cardiovascular status: normal Respiratory status: normal Airway patency: baseline Mental status: baseline Vital Signs: Last Vital Signs Temp 35.6 C L 07/29/24 12:13 Pulse 87 07/29/24 12:13 Resp 18 07/29/24 12:13 BP 103/73 07/29/24 12:13 Pulse Ox 98 07/29/24 12:13 O2 Del Method Room Air 07/28/24 07:28 Pain score (VAS): 0 I/O: Intake & Output 07/28/24 07/29/24 07/29/24 23:59 07:59 15:59 Intake Total 500 Output Total 150 Balance 350 Patient feedback: Patient satisfied with anesthetic care.
[2024-07-29 15:49] LABS: Glucose Point of Care 70 mg/dl (65-105)
[2024-07-29] MEDS: INSULIN ASPART (*BKC) 100 UNITS/ML 14 UNITS SUB-Q (18:04)
--- NOTE | 2024-07-29 19:16 | PC.NURSE ---
0802 Patient Dexcom read 119 0829 Patient Dexcom read 101 0935 Patient Dexcom read 116 1025 See Adult Hypoglycemic event in worklist 1400 Patient Dexcom read 142 1800 Patient Dexcom read 109
[2024-07-29 20:30] VITALS: BP 112/70; PULSE 93; RESP 18; TEMP 36.6; O2SAT 99
[2024-07-29] MEDS: ACETAMINOPHEN 325 MG TABLET 650 MG PO (20:39)
[2024-07-30] MEDS: IBUPROFEN 600 MG TABLET PO ×2 (03:53→12:55)
[2024-07-30] MEDS: ACETAMINOPHEN 325 MG TABLET 650 MG PO (07:04)
[2024-07-30] MEDS: LEVOTHYROXINE SODIUM 25 MCG TABLET PO (07:05)
[2024-07-30] MEDS: INSULIN HUMAN NPH (*BKC) 100 UNITS/ML 17 UNITS SUB-Q (07:06)
[2024-07-30 07:14] VITALS: BP 133/82; PULSE 88; RESP 20; TEMP 36.3; O2SAT 97
--- NOTE | 2024-07-30 07:21 | PC.NURSE ---
Patient's AM BG per her DEXCOM- 134. Ordered Insulin given per protocol.
[2024-07-30] MEDS: INSULIN ASPART (*BKC) 100 UNITS/ML 12 UNITS SUB-Q (08:59)
[2024-07-30] MEDS: metFORMIN HCL XR 500 MG TAB.SR.24H 1000 MG PO (09:04)
[2024-07-30] MEDS: DOCUSATE SODIUM 100 MG CAPSULE PO (09:05)
--- NOTE | 2024-07-30 09:31 | PC.NURSE ---
Patient's BG 80 per her dexcom. Breakfast at bedside. Ordered Insulin given and patient eating meal.
--- NOTE | 2024-07-30 10:51 | P.PNOB_ITS ---
OB - PN: Subj Subjective Date/time seen: 07/30/24 10:51 Patient comments: no complaints and pain well controlled baby status: other (in special care on IV and O2) OB - PN: Obj Data Labs 07/29/24 04:09 Labs: Laboratory Results - last 24 hr 07/29/24 10:34 POC Capillary Glucose 70 OB - PN A/P Assessment and Plan (1) GDM, class A2: Code(s): O24.419 - Gestational diabetes mellitus in , unspecified control Status: Acute Assessment and Plan: DC insulin and continue metformin. Some lows at night Plan day: 2 Plan: routine care, discharge home and follow up 6 weeks Time Spent With Patient Time: Total time spent is greater than 50% in coordination of care (as documented) at patient's floor/unit and/or counseling patient: Exam 2 : Bimanual exam- vagina & uterus: other (Uterus firm, nt @U)
== END 2024-07-30 13:15 | disposition home or self-care (01) | DRG 807 ==
LOC: ANHLDR 18:39 → ANHOB2 21:01
PROVIDERS: Admitting Provider Obstetrics & Gynecology Gynecology; Visit Provider Obstetrics & Gynecology Gynecology
DX: O24.429 Gestational diabetes mellitus in childbirth, unspecified control (principal); Z37.0 Single live birth; Z3A.39 39 weeks gestation of pregnancy; O70.0 First degree perineal laceration during delivery; O69.81X0 Labor and delivery complicated by cord around neck, without compression, not applicable or unspecified
CPT/HCPCS: 36415; 82948; 85014; 85018; 85025; 86593; 86703; 86850; 86900; 86901; 88307; A9270; G0432; J1815; J2590; J2795; J3010; J7120

== ENCOUNTER 2024-09-04 15:58 | Emergency (ER) | payer OTHER, SELFPAY ==
--- NOTE | ~2024-09-04 | XR_ITS ---
XR abdomen/kub 1V Ordering provider: CELSA Dill History: . no BMx 4 days . Comparison: None. FINDINGS: BOWEL: Nonobstructive bowel gas pattern. Fecal material is loaded in the colon. ORGANOMEGALY: None. SIGNIFICANT PATHOLOGIC CALCIFICATIONS: None. OTHER: No free air is seen under the diaphragm. IMPRESSION: NO ACUTE ABDOMINAL FINDINGS. Constipation. Reviewed, dictated and finalized at location A.
--- OUTSIDE RECORDS SUMMARY | 2024-09-04 16:00 | XMS_ITS | Clinical Summary ---
Author Organization [facility] Address [address] [place] [address] Care Team Providers Care Storeroom Supervisor Name Role Phone No, Physician Primary [...] on file Legal Sex Female 5:02 PM DRILL DOCTOR Gender Identity Not on file Sexual Orientation Not on file Obstetrics History Para Term AB IAB SAB Ectopic Multiple Livin g Live Births 1 Date Outcome GA Total Labor Labor/2nd/3rd Weight Sex Type Anes PTL Rajni A1 A5 Name Clin Current Last Filed Vital Signs Vital Sign Reading Time Taken Comments Blood Pressure 107/87 01/20/2024 1:00 AM DRILL DOCTOR Pulse 87 01/20/2024 2:20 AM DRILL DOCTOR Temperature 37.1 C (98.7 F) 01/19/2024 9:54 PM DRILL DOCTOR Respiratory Rate 18 01/19/2024 9:54 PM DRILL DOCTOR Oxygen Saturation 97% 01/20/2024 2:20 AM DRILL DOCTOR Inhaled Oxygen Concentration - - Weight 108.4 kg (239 lb) 01/19/2024 9:54 PM DRILL DOCTOR Height 162.6 cm (5' 4) 01/19/2024 9:54 PM DRILL DOCTOR Body Mass Index 41.02 01/19/2024 9:54 PM DRILL DOCTOR Plan of Treatment Health Maintenance Due Date [...] complete this topic Insurance IDPA Care Teams Storeroom Supervisor Relationship Specialty Start Date End Date No, Physician PCP - General 10/03/17
--- OUTSIDE RECORDS SUMMARY | 2024-09-04 16:00 | XMS_ITS | Clinical Summary ---
Author Organization [facility] Address [address] [place] [address] Phone Care Team Providers Care Plant Health Care Technician Name Role Phone Unavailable Primary Care Provider Unavailabl e Allergies No known active allergies Medications vits15/iron/fol ic/dss ( VIT 69-OBJT-GWFQB-D SS ORAL) Take by mouth. Activ e [...] Encounters Date Type Department Care Team Description 08/16/2024 External Device Data [facility] ABSTRACTION Provider, Abstract 08/09/2024 External Device Data [facility] ABSTRACTION Provider, Abstract 07/19/2024 External Device Data [facility] ABSTRACTION Provider, Abstract 07/13/2024 External Device Data [facility] ABSTRACTION Provider, Abstract 07/12/2024 External Device Data [facility] ABSTRACTION Provider, Abstract 07/10/2024 Refill [facility] Maternal Medicine [address] [place] [address] Clementina Santos NP Gestational diabetes mellitus, class A2 06/23/2024 Telephone [facility] Maternal and Medicine - [facility] [place] [facility] [address] [place] [address] Dimple Zazueta Follow Up 06/22/2024 Telephone [facility] and [facility] - [facility] [place] [facility] [address] [place] [address] Gestational Diabetes 06/21/2024 External Device Data [facility] ABSTRACTION Provider, Abstract 06/21/2024 External Device Data [facility] ABSTRACTION Provider, Abstract 06/13/2024 7:30 AM CDT - 06/13/2024 11:59 PM CDT Hospital Encounter [facility] Maternal and Health [facility] [address] [place] [address] Jessica Higgins MD Discharge Disposition: Home or Self Care 06/06/2024 Chart Note [facility] and [facility] - [facility] [place] [facility] [address] [place] [address] Yaneth Awad MD Gestational Diabetes from Last 3 Months Family History Medical [...] on file Legal Sex Female 1:47 PM FINANCIAL SOLUTIONS ADVISOR Gender Identity Not on file Sexual Orientation [...] 06/23/2021 PAP SMEAR 06/23/2021 INFLUENZA VACCINE (#1) 2024 DTAP/TDAP/TD VACCINES (2 - T d or [...] ARCHER Study Date: 06/13/2024 7:30am Pat. NO: [id number] Referring MD: JESSICA HIGGINS MD Site: [facility]er: Tiffanie Cotton RDMS : 1990 Age: 33 ----- INDICATION ----- Gestational Diabetes, Insulin Controlled Maternal Obesity (BMI>40) Complicating Screening Follow-Up CODING ----- Diagnoses Z3A.32: Weeks of gestation O99.213: Obesity complicating O24.414: Gestational diabetes mellitus in , insulin controlled Z36.2: Encounter for other screening follow-up Procedures 36534: Ultrasound, uterus, real time with image documentation, [...] 5 lb 2 oz EFW by Hadlock ([id number]) Head / Face / Neck Biometry: Burrer Hand 2.5 mm Extremities / Bony Struc Biometry: [...] and date of were verified by the tennis net maker prior to the exam IMPRESSION ----- Viable [...] Pat. Name:Tam ARCHER Date:06/13/2024 7:30am Pat. NO: [id number] :JESSICA HIGGINS MD [facility]Tiffanie Cotton RDMS :1990Age:33 ----- INDICATION ----- Gestational Diabetes, Insulin Controlled Maternal Obesity (BMI>40) Complicating Screening Follow-Up CODING ----- Diagnoses Z3A.32: Weeks of gestation O99.213: Obesity complicating O24.414: Gestational diabetes mellitus inpregnancy, insulin controlled Z36.2: Encounter for other screeningfollow-up Procedures 08951: Ultrasound, uterus, real time withimage documentation, follow up, transabdominal approach per fetus METHOD ----- Transabdominal ultrasound examination ----- [place] . Number of fetuses: 1 DATING ----- GA by prior [id number] w + 4 d BEAR by prior [...] 5 lb 2 oz EFW by Hadlock ([id number]) Head / Face / Neck Biometry: Burrer Hand 2.5mm Extremities / Bony Struc Biometry: FL [...] and date of were verified by the tennis net maker prior tothe exam IMPRESSION ----- Viable at [...] cannot be visualized. us Jessica Higgins MD ORDERABLES Final Res ult from Last 3 Months Insurance [facility]
--- OUTSIDE RECORDS SUMMARY | 2024-09-04 16:00 | XMS_ITS | Clinical Summary ---
Author Organization [facility] Address [address] [place] [address] Care Team Providers Care Insight Director Name Role Phone Unavailable Primary Care Provider Unavailabl e Source Comments [facility],non-owned Affiliates and Associated Physician Practices is amultiple site organization consisting of ambulatory clinics and hospital sitesin [place], [place], [place] and [place]. This disclosure is being madepursuant to the Care Everywhere program and may not contain all information available regarding this patient. Last updated 17.[facility] Encounters Date Type Department Care Team Description 07/11/2024 9:33 AM CDT - 07/11/2024 11:59 PM CDT Hospital Encounter [facility] Women's Health Maternal & Care [address] [place], [place] [id number] Ana Paula Sargent MD Discharge Disposition: Home [...] Health Maintenance Due Date Last Done Comments HIV SCREENING 06/23/2006 HEPATITIS C SCREENING 06/19/2009 DTAP/TDAP/TD VACCINES (1 - Tdap) 06/23/2010 HEPATITIS B VACCINE (1 of 3 - 19+ 3-dose series) 06/23/2010 PAP SMEAR 06/23/2012 HPV VACCINE (1 - 3-dose SCDM series) 06/23/2018 COVID-19 VACCINE (2023-2 5 season) 2023 DEPRESSION SCREENING 02/24/2024 OB-ONE HOUR GLUCOSE 04/29/2024 OB-TDAP CURRENT 05/06/2024 OB-RHOGAM INJECTION 05/13/2024 OB-GROUP B STREP SCREEN 07/01/2024 INFLUENZA VACCINE (#1) 2024 ZOSTER VACCINE (1 of 2) 06/23/2041 [...] 7 lb 15 oz EFW by Hadlock ([id number]) LGA Growth Overview Exam date GA BPD [...] view. RVOT view. LVOT view. 3-vessel view. 5-zqlxys-spgogzd view. Aortic arch view. Bicaval view. Ductal [...] 3 weeks, if undelivered. Coding ====== Procedures 58557: US Preg Uterus Detailed 34601: Biophysical Profile W/O NST anydooR PACS Anatomical Region Laterality Modality Other 07/11/2024 9:46 AM CDT Jessica Higgins MD [facility] ORDERABLES Edited Resu lt - Final from Last 3 Months Insurance [facility] [place] NO INSURANCE Member Subscriber Plan / Payer (Ef fective for All Dates) Name:Monty Archer Member ID:Not on file Relation to Subscriber:Not on file Name:MONTY ARCHER Subscriber ID:Not on file (Home) Address: [address] [place] [address] Payer ID:Not on file Group ID:Not on file Type:Self Pay Address: [place], [place]
--- OUTSIDE RECORDS SUMMARY | 2024-09-04 16:00 | XMS_ITS | Referral Summary ---
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 Gender Identity Not on file Sexual Orientation Not on file Last Filed Vital Signs Vital Sign Reading Time Taken Comments Blood Pressure 107/87 01/20/2024 1:00 AM CATALYTIC CASE OPERATOR Pulse 87 01/20/2024 2:20 AM CATALYTIC CASE OPERATOR Temperature 37.1 C (98.7 F) 01/19/2024 9:54 PM CATALYTIC CASE OPERATOR Respiratory Rate 18 01/19/2024 9:54 PM CATALYTIC CASE OPERATOR Oxygen Saturation 97% 01/20/2024 2:20 AM CATALYTIC CASE OPERATOR Inhaled Oxygen Concentration - - Weight 108.4 kg (239 lb) 01/19/2024 9:54 PM CATALYTIC CASE OPERATOR Height 162.6 cm (5' 4) 01/19/2024 9:54 PM CATALYTIC CASE OPERATOR Body Mass Index 41.02 01/19/2024 9:54 PM CATALYTIC CASE OPERATOR Plan of Treatment Not on file Insurance IDWI Care Teams Marketing Editor Relationship Specialty Start Date End Date No, Physician PCP - General 10/03/17
[2024-09-04 16:09] VITALS: BP 154/115; PULSE 68; RESP 20; TEMP 36.4; O2SAT 100
--- NOTE | 2024-09-04 16:09 | ED.GENADULT ---
HPI - General Adult General Chief complaint: Abdominal Pain Stated complaint: poss fecal impaction Time Seen by Provider: 09/04/24 16:09 Source: patient Mode of arrival: ambulatory Limitations: no limitations History of Present Illness HPI narrative: 34-year-old female patient presents to the [facility] with complaints of constipation for the past 3-4 days. Patient is 5 weeks . Patient states she did have gestational diabetes at the time of . Patient states last bowel movement was about 4 days ago. Patient states she feels like something is there she is just not able to push it out. Patient states she has tried some dsbe-[id number]-[id number] generic stool softeners and his increased her water denies any MiraLax or and months. Patient denies fevers body aches or chills. Denies any abdominal pain except for mild cramping. Related Data Home Medications ?Medication ?Instructions ?Recorded ?Confirmed ?Last Taken ?Type levothyroxine 25 mcg tablet mcg 07/28/24 07/28/24 History metformin 500 mg tablet,extended 1,000 mg PO BID 07/28/24 07/28/24 07/28/24 History release 24 hr Allergies Allergy/AdvReac Type Severity Reaction Status Date / Time No Known Allergies Allergy Verified 09/04/24 16:15 Review of Systems Review of Systems: CONSTITUTIONAL: Denies fever, chills, or sweats. EYES: Denies visual changes, redness, or discharge. ENT: Denies rhinorrhea, congestion, sore throat, or otalgia. CARDIOVASCULAR: Denies chest pain, palpitations, or edema. RESPIRATORY: Denies cough or dyspnea. GASTROINTESTINAL: Denies abdominal pain, nausea, vomiting, or diarrhea. Positive constipation times 3-4 days GENITOURINARY: Denies dysuria or hematuria. SKIN: Denies rash or itching. MUSCULOSKELETAL: Denies back pain, joint pain, or myalgia. NEUROLOGIC: Denies headache, numbness, or weakness. PSYCHIATRIC: Denies anxiety or depression. [facility] Past Medical History Medical History Former smoker Morbid obesity Hypothyroid Gestational diabetes Social History Social History Smoking status: Former smoker Tobacco type: e-cigarettes/vaping Second hand tobacco smoke exposure: No Substance use: never Do You Feel Safe in your Home?: Yes Lack of Transportation: No Lack of Food: Never True Current Housing: I Have Housing Concerned About Future Housing: No Difficulty Paying Gas/Electric Bills: No Difficulty Paying for Meds: No Currently Unemployed: No Education: Bachelor's Degree Difficulty w/ Childcare or Family Care: No Spiritual care concerns: No Comments At the time of my signature I agree with nursing past medical history, surgical, social, and family history. There is no relevant family history pertinent to the presenting complaint. Exam Narrative: GENERAL: Well-appearing, well-nourished, and in no acute distress. HEAD: Normocephalic, atraumatic. EYES: PERRLA and EOMI. ENT: Nares clear, no rhinorrhea or epistaxis. Mucous membranes moist. NECK: Supple. No lymphadenopathy CHEST: Clear to auscultation. No respiratory distress. HEART: Regular rate and rhythm. No murmur heard. Normal peripheral pulses. ABDOMEN: Soft, flat, nondistended. No guarding, rebound tenderness, or rigid. No pulsatilla masses. Bowel sounds present in all four quadrants. No organomegaly. Negative Mota?s sign. No periumbicial tenderness. No Supra public tenderness or distension. Good femoral pulses bilaterally. No hernia noted. No scars or surface trauma. EXTREMITIES: Normal range of motion. No edema. SKIN: Warm, dry, no rash. NEURO: No focal deficits. Alert and oriented x3. Course Course Level of Care: Express Care Visit Reevaluation(s) Reevaluation #1: Discussed with patient that we are still waiting on the x-ray to result from the radiologist however reviewing the x-ray it does show obvious constipation a lot of stool. Discussed with patient that were going to discharge her and I recommend getting djdf-cun-qaktwhj MiraLax and doing MiraLax in her water about every hour until she starts to see some results. If she does not see any results within 24 hours she can try an jqrn-kul-xapwfnp enema as well as the MiraLax if this continues past 48 hours she may want to be evaluated in the emergency department. Did discuss with patient if the x-ray shows anything other than constipation for instance suggestion of a bowel obstruction I will call her and let her know. Patient is in agreement with this plan care at this time Date: 09/04/24 Time: 17:36 Vital Signs Vital signs: Vital Signs Temperature 36.4 C L 09/04/24 16:09 Pulse Rate 68 09/04/24 16:09 Respiratory Rate 09/04/24 16:09 Blood Pressure 154/115 H 09/04/24 16:09 Pulse Oximetry 100 09/04/24 16:09 Oxygen Delivery Room Air 09/04/24 16:09 Temperature 36.4 C L 09/04/24 16:09 Pulse Rate 09/04/24 16:09 Respiratory Rate 09/04/24 16:09 Blood Pressure 154/115 H 09/04/24 16:09 Pulse Oximetry 100 09/04/24 16:09 Oxygen Delivery Room Air 09/04/24 16:09 vital signs reviewed. The patient has been informed that they may have pre-hypertension or Hypertension based on a BP reading in the department. I recommend that the patient call the primary care provider listed on their discharge instructions or a physician of their choice this week to arrange follow up for further evaluation of possible pre-hypertension or Hypertension Medical Decision Making MDM Narrative Medical decision making narrative: plan of care patient is to obtain KUB to assess for constipation and any evidence of a bowel obstruction. If negative for bowel obstruction may discharge home with MiraLax and possible enema. Differential Diagnosis Differential Diagnosis: Differential diagnosis: Appendicitis, ovarian torsion, gallbladder disease, ovarian torsion, pancreatitis, lower lobe pneumonia,AAA, AMI or ACS, DKA, diverticulitis. Vital Signs Vital Signs: Vital Signs Temperature 36.4 C L 09/04/24 16:09 Pulse Rate 09/04/24 16:09 Respiratory Rate 09/04/24 16:09 Blood Pressure 154/115 H 09/04/24 16:09 Pulse Oximetry 09/04/24 16:09 Oxygen Delivery Room Air 09/04/24 16:09 Temperature 36.4 C L 09/04/24 16:09 Pulse Rate 09/04/24 16:09 Respiratory Rate 09/04/24 16:09 Blood Pressure 154/115 H 09/04/24 16:09 Pulse Oximetry 100 09/04/24 16:09 Oxygen Delivery Room Air 09/04/24 16:09 Critical Care Time Critical Care Time Critical Care Time: No Discharge Plan Discharge Clinical Impression: Constipation Qualifiers: Constipation type: unspecified constipation type Qualified Code(s): K59.00 - Constipation, unspecified Patient Disposition: Home Condition: Stable Instructions: Antibiotic Form, Constipation (ED) Additional Instructions: recommend to take MiraLax every hour until you start to produce results and start backing off of how many times to use the MiraLax. You may also tried [id number]-[id number] enema to see if this helps break things to encourage movement. Continue to increase your water. If the x-ray shows anything other than constipation we will call you before the end of the shift to let you know. Please follow-up with primary doctor for further evaluation as needed. Patient Language: Kazakh Prescriptions: No Action levothyroxine 25 mcg tablet metformin 500 mg tablet extended release 24 hr 1,000 mg PO BID Follow-up/Referrals: PHYSICIAN,[employer] OPERATOR [Primary Care Provider] - Time of Disposition: 17:33
[2024-09-04 17:24] VITALS: BP 140/94
== END 2024-09-04 17:38 | disposition home or self-care (01) ==
PROVIDERS: Emergency Provider Nurse Practitioner Family
DX: O99.63 Diseases of the digestive system complicating the puerperium (principal); K59.00 Constipation, unspecified; E03.9 Hypothyroidism, unspecified; E66.01 Morbid (severe) obesity due to excess calories; Z68.38 Body mass index [BMI] 38.0-38.9, adult; Z87.891 Personal history of nicotine dependence
CPT/HCPCS: 74018; 99213; G0463